=== PATIENT | female | born 1955 | race Caucasian/White ===

== ENCOUNTER 2017-05-31 10:30 | Outpatient (RCR) | payer SELFPAY ==
[2017-05-24 12:48] VITALS: BP 135/82; PULSE 124; RESP 18; TEMP 37.1; BMI 22.6
--- NOTE | 2017-05-24 14:19 | HP.PCM_ITS ---
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 Status: Acute Current Visit: Yes Code(s): C67.9 - Malignant neoplasm of bladder, unspecified; C77.5 - Secondary and unspecified malignant neoplasm of intrapelvic lymph nodes (2) History of total cystectomy Status: Acute Current Visit: Yes Code(s): Z98.890 - Other specified postprocedural states (3) Heart murmur Status: Chronic Current Visit: No Code(s): R01.1 - Cardiac murmur, unspecified (4) Renal insufficiency Status: Chronic Current Visit: No Code(s): N28.9 - Disorder of kidney and ureter, unspecified (5) Hypertension Status: Chronic Current Visit: No Qualifiers: Hypertension type: essential hypertension Qualified Code(s): I10 - Essential (primary) hypertension Code(s): I10 - Essential (primary) hypertension (6) Anemia Status: Chronic Current Visit: No Code(s): D64.9 - Anemia, unspecified (7) Obesity Status: Chronic Current Visit: No Code(s): E66.9 - Obesity, unspecified (8) Wound infection after surgery Status: Chronic Current Visit: Yes Qualifiers: Encounter type: initial encounter Qualified Code(s): T81.4XXA - Infection following a procedure, initial encounter Code(s): T81.4XXA - Infection following a procedure, initial encounter (9) Surgical wound dehiscence Status: Acute Current Visit: Yes Qualifiers: Encounter type: initial encounter Qualified Code(s): T81.31XA - Disruption of external operation (surgical) wound, not elsewhere classified, initial encounter Code(s): T81.31XA - Disruption of external operation (surgical) wound, not elsewhere classified, initial encounter (10) S/P ileal conduit Status: Acute Current Visit: Yes Code(s): Z93.6 - Other artificial openings of urinary tract status History of Present Illness Date of Service: 05/24/17 Chief Complaint: Postoperative surgical wound infection and surgical wound dehiscence of the abdomen History of Wound: This is a 61-year-old female who was diagnosed with bladder cancer earlier this year. It is a clinical T2 N3 urolithelial [place] of the bladder. Between September and December 2016 patient underwent 6 cycles of neoadjuvant chemotherapy. On February 17, she underwent radical cystectomy with vaginal sparing, ileal conduit urinary diversion, bilateral extended pelvic lymph node resection, bilateral ureterolysis, and open liver biopsy. She suffered from a series of postoperative complications, which included postoperative ascites which was surgically drained on 2 occasions, once in February and once in April. Surgical wound infection and dehiscence occurred, and is currently under treatment by means of oral antibiotics, including Keflex and Levaquin. The patient presents at this time for evaluation and management regarding her surgical wound dehiscence. Management currently exists of packing of the open portion of the wound with Nu Gauze on a daily basis. The patient's surgeon at [facility] in [place], [place], was Dr. Sidney Gonzalez. The patient admits that her appetite recently has been only fair. Past Medical History Past Medical History: Chronic Problems Heart murmur (Chronic) Renal insufficiency (Chronic) Hypertension (Chronic) Anemia (Chronic) Obesity (Chronic) Wound infection after surgery (Chronic) Past Medical History: Patient has a history of hypertension, heart murmur, renal insufficiency, anemia, obesity, and diabetes mellitus. Her history is negative for myocardial infarction, congestive heart failure, cerebrovascular accident, pulmonary disease, and thyroid disease. Surgical History: - - Patient is undergone hysterectomy in 2004. Tonsillectomy and adenoidectomy were performed in childhood. Patient has recently undergone the procedures previously outlined. She is a Ab0. Allergies/Adverse Reactions: Allergies quetiapine Adverse Reaction (Verified 05/24/17 13:15) Other Home Medications: Ambulatory Orders Medication Instructions Recorded Amlodipine [Norvasc] 5 mg PO DAILY 05/24/17 Cephalexin [Keflex] 500 mg PO TID 05/24/17 Ferrous Sulfate [Iron] 325 mg PO TID 05/24/17 Insulin Aspart [Novolog Flexpen See Protocol SC TIDCM 05/24/17 ([facility])] Insulin Glargine,Hum.rec.anlog 25 unit SQ QHS 05/24/17 [Basaglar Kwikpen U-100] Insulin Glargine,Hum.rec.anlog 15 unit SQ QHS 05/24/17 [Lantus] Levofloxacin [Levaquin] 750 mg PO 05/24/17 Magnesium Oxide [Mag-Ox 400] 400 mg PO BID 05/24/17 Metoprolol Succinate 50 mg PO DAILY 05/24/17 Omeprazole 40 mg PO DAILY 05/24/17 Prochlorperazine Maleate 10 mg PO 05/24/17 Sodium Bicarbonate 650 mg PO BID 05/24/17 Venlafaxine HCl [Effexor] 37.5 mg PO 05/24/17 - Family History Maternal - - Patient's father is . He at the age of 68 with a history of myocardial infarction and asbestosis. Patient's mother is 85 years of age and generally healthy. Social History: Patient is retired from [employer]. She denies use of alcohol tobacco products. She is . Lives: Alone Smoking Status: Never smoker Tobacco Use: Non-smoker Alcohol: None Drugs: None Review of Systems Constitutional: Denies: Chills, Fever, Weight Change Eyes: Denies: Pain, Vision Change HEENT: Denies: Difficulty Hearing, Difficulty Swallowing, Sinus Congestion Cardiovascular: Denies: Chest Pain, Palpitations Respiratory: Denies: Cough, Shortness of Breath Gastrointestinal: Denies: Diarrhea, Nausea, Vomiting Genitourinary: Denies: Dysuria, Hematuria Endocrine: Denies: Heat/ Cold Intolerance, Polydipsia, Polyuria Hematologic/ Lymphatic: Denies: Easy Bruising, Easy Bleeding - Physical Exam Vital Signs Temp Pulse Resp BP 98.7 F 124 H 18 135/82 H 05/24/17 12:48 05/24/17 12:48 05/24/17 12:48 05/24/17 12:48 General: Alert, Oriented x3, Cooperative, No apparent distress, Well developed, Well nourished, - - The patient is chronically ill in appearance. HEENT: Atraumatic, PERRLA, EOMI, Normocephalic Oral: Moist Mucosa, No Gingival or Mucosal Lesions/ Ulcerations Neck: Supple, No JVD, Negative Carotid Bruits, Negative Hepatojugular Reflux, No Nodes, No Nuchal Rigidity, Trachea Midline Lungs: Clear to auscultation, Normal air movement, No rhonchi, No wheeze, No rales Cardiovascular: Regular rate, Regular Rhythm, Normal S1, Normal S2, No Ectopic Activity Abdomen: Soft, Non Tender, Non-Distended, - - The stoma of the patient's ileal conduit is noted to the right of the midline. It is pink and healthy in appearance, appearing to be well vascularized. A surgical midline incision is noted, which appears to be well approximated throughout most of its course. There is an open wound with nonviable and necrotic tissue, located at the navel. There is undermining both superiorly and inferiorly of the distance of approximately 5 cm. Inferior to this dehiscent wound is a large area of frankly dry necrotic tissue, the dimensions of which are documented elsewhere. Extremities: No clubbing, No cyanosis, No edema, No Calf Tenderness Skin: No rashes Wound Measurements and Assessment - Nurse 1 - General Ulcer Measurement Start: 05/24/17 12:42 Freq: Status: Active Protocol: Activity Type Activity Date Activity User E-Sign Co-Sign Detail Recorded Client Recorded Date Recorded By Document 05/24/17 12:48 [facility] [id number] 05/24/17 12:55 [facility] 05/24/17 12:48 Wound Center Nurse 1 [Ulcer Assessment Protocol: .WD.LOC] #2- INFERIOR ABD WOUND (SURGICAL INCISION DEHISCENCE) -Combined with other wound No -Current Size (cm) - Length 1.9 -Current Size (cm) - Width 3.7 -Current Size (cm) - Depth 0.1 -Total Square Cm 7.03 -Date of Last Picture (Recall this 05/24/17 field) -Photo Taken Yes -Epithelialization None Present -Tunneling No -Undermining/Tunneling No -Exudate Amt Medium (34-66%) -Exudate Type Serosanguineous -Wound Margin Distinct, Outline Attached -Granulation Amt None Present (0 %) -Slough/Fibrin Yes -Necrosis Amt Large (67-100%) -Necrotic Tissue Type Eschar -Texture (Mayte-wound Skin Appearance) Scarring -Color (Mayte-wound Skin Appearance) Erythema -Temperature (Mayte-wound Skin No Abnormality Appearance) (Pt Warm) -Tenderness on Palpation (Mayte-wound No Skin Appearance) -Ulcer Cleansing Rinsed/ Irrigated with Saline -Foul Odor after Cleansing No -Anesthetic Used 4% Lidocaine Solution #1- SUPERIOR ABD WOUND (SURGICAL INCISION DEHISCENCE) -Combined with other wound No -Current Size (cm) - Length 1 -Current Size (cm) - Width 1.2 -Current Size (cm) - Depth 2 -Total Square Cm 1.2 -Date of Last Picture (Recall this 05/24/17 field) -Photo Taken Yes -Epithelialization None Present -Tunneling No -Undermining/Tunneling Yes -Undermining/Tunneling Starts (O' 12 clock) -Undermining/Tunneling Ends (O'clock) 3 -Maximum Distance (cm) 3.3 -Circular Undermining No -Exudate Amt Medium (34-66%) -Exudate Type Serosanguineous -Wound Margin Distinct, Outline Attached -Granulation Amt Medium (34-66%) -Granulation Quality Red -Slough/Fibrin Yes -Necrosis Amt Medium (34-66%) -Necrotic Tissue Type Adherent Slough -Texture (Mayte-wound Skin Appearance) Scarring -Moisture (Mayte-wound Skin Appearance Dry/Scaly ) -Color (Mayte-wound Skin Appearance) Erythema -Temperature (Mayte-wound Skin No Abnormality Appearance) (Pt Warm) -Tenderness on Palpation (Mayte-wound No Skin Appearance) -Ulcer Cleansing Rinsed/ Irrigated with Saline -Foul Odor after Cleansing No -Anesthetic Used 4% Lidocaine Solution Neurological: Cranial nerves II-XII grossly intact, Neuro grossly intact Psych/Mental Status: Normal Affect, Appropriate, Alert and oriented to time, place, person, mood and affect Debridement Note Laterality: Not Applicable Type of Debridement: Excisional debridement Anesthesia Used: 4% Lidocaine Solution Depth: Down to and including healthy tissue, in the subcutaneous layer Percentage of wound debrided: 100 Instrument Used: #15 blade, Forceps Severity: Fat Layer Exposed Amount of bleeding with debridement: Mild Bleeding Controlled with: Compression and gauze Patient tolerated procedure well The wound of depth near the navel was debrided using a sterile forceps and scalpel. The necrotic margins of the wound were excised. The inferior wound, which is more superficial, consisted of a very thick, dry eschar. After applying topical lidocaine anesthetic, on several occasions, sharp scalpel dissection was used to excise the overlying dry necrotic eschar. Patient tolerated the procedure well. The debridement was carried down into the subcutaneous tissues. Minimal bleeding was encountered. Assessment/Plan Active Problems Bladder cancer metastasized to intrapelvic lymph nodes (Acute) History of total cystectomy (Acute) Wound infection after surgery (Chronic) Surgical wound dehiscence (Acute) S/P ileal conduit (Acute) Assessment: This is a 61-year-old female with a recent diagnosis of carcinoma of the bladder. She is several months postoperative, and now has significant dehiscence of the inferior portion of her wound, associated with infection. Plan: We are to obtain routine laboratory studies, including a CBC, comprehensive metabolic profile, serum prealbumin, hemoglobin A1c, etc. Patient has been advised to take a well balanced and nutritious diet. Optimization of her diabetes has been recommended. Packing of the large open wound is to be performed using sterile Nu Gauze, which the patient's family has already been implementing. We will initiate the use of collagenase Santyl topically on the inferior wound, from which the large dry necrotic eschar has been excised today. Patient will return in 1 week for reassessment. Ultimately , radiographic imaging may be helpful in determining the underlying anatomy of the patient's wounds. She is scheduled to undergo a CT scan of the abdomen at [facility] on June 10, 2017. We have asked that the report and a disc with images be forwarded back to us so that we can review the patient's wound. At this juncture, her multidisciplinary team of physicians at [facility] in [place] anticipates the mentation of immunotherapy in the near future. The patient is not a smoker. Influenza vaccine was not administered today. Patient stands 5 feet 9 inches tall. She weighs 153 pounds. Her BMI is 22.6, which is normal.
--- NOTE | 2017-05-24 14:33 | HP.PCM_ITS ---
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 Status: Acute Current Visit: Yes Code(s): C67.9 - Malignant neoplasm of bladder, unspecified; C77.5 - Secondary and unspecified malignant neoplasm of intrapelvic lymph nodes (2) History of total cystectomy Status: Acute Current Visit: Yes Code(s): Z98.890 - Other specified postprocedural states (3) Heart murmur Status: Chronic Current Visit: No Code(s): R01.1 - Cardiac murmur, unspecified (4) Renal insufficiency Status: Chronic Current Visit: No Code(s): N28.9 - Disorder of kidney and ureter, unspecified (5) Hypertension Status: Chronic Current Visit: No Qualifiers: Hypertension type: essential hypertension Qualified Code(s): I10 - Essential (primary) hypertension Code(s): I10 - Essential (primary) hypertension (6) Anemia Status: Chronic Current Visit: No Code(s): D64.9 - Anemia, unspecified (7) Obesity Status: Chronic Current Visit: No Code(s): E66.9 - Obesity, unspecified (8) Wound infection after surgery Status: Chronic Current Visit: Yes Qualifiers: Encounter type: initial encounter Qualified Code(s): T81.4XXA - Infection following a procedure, initial encounter Code(s): T81.4XXA - Infection following a procedure, initial encounter (9) Surgical wound dehiscence Status: Acute Current Visit: Yes Qualifiers: Encounter type: initial encounter Qualified Code(s): T81.31XA - Disruption of external operation (surgical) wound, not elsewhere classified, initial encounter Code(s): T81.31XA - Disruption of external operation (surgical) wound, not elsewhere classified, initial encounter (10) S/P ileal conduit Status: Acute Current Visit: Yes Code(s): Z93.6 - Other artificial openings of urinary tract status History of Present Illness Date of Service: 05/24/17 Chief Complaint: Postoperative surgical wound infection and surgical wound dehiscence of the abdomen History of Wound: This is a 61-year-old female who was diagnosed with bladder cancer earlier this year. It is a clinical T2 N3 urolithelial [place] of the bladder. Between September and December 2016 patient underwent 6 cycles of neoadjuvant chemotherapy. On February 17, she underwent radical cystectomy with vaginal sparing, ileal conduit urinary diversion, bilateral extended pelvic lymph node resection, bilateral ureterolysis, and open liver biopsy. She suffered from a series of postoperative complications, which included postoperative ascites which was surgically drained on 2 occasions, once in February and once in April. Surgical wound infection and dehiscence occurred, and is currently under treatment by means of oral antibiotics, including Keflex and Levaquin. The patient presents at this time for evaluation and management regarding her surgical wound dehiscence. Management currently exists of packing of the open portion of the wound with Nu Gauze on a daily basis. The patient's surgeon at [facility] in [place], [place], was Dr. Sidney Gonzalez. The patient admits that her appetite recently has been only fair. Past Medical History Past Medical History: Chronic Problems Heart murmur (Chronic) Renal insufficiency (Chronic) Hypertension (Chronic) Anemia (Chronic) Obesity (Chronic) Wound infection after surgery (Chronic) Surgical History: - - Patient is undergone hysterectomy in 2004. Tonsillectomy and adenoidectomy were performed in childhood. Patient has recently undergone the procedures previously outlined. She is a Ab0. Allergies/Adverse Reactions: Allergies quetiapine Adverse Reaction (Verified 05/24/17 13:15) Other Home Medications: Ambulatory Orders Medication Instructions Recorded Amlodipine [Norvasc] 5 mg PO DAILY 05/24/17 Cephalexin [Keflex] 500 mg PO TID 05/24/17 Ferrous Sulfate [Iron] 325 mg PO TID 05/24/17 Insulin Aspart [Novolog Flexpen See Protocol SC TIDCM 05/24/17 ([facility])] Insulin Glargine,Hum.rec.anlog 25 unit SQ QHS 05/24/17 [Basaglar Kwikpen U-100] Insulin Glargine,Hum.rec.anlog 15 unit SQ QHS 05/24/17 [Lantus] Levofloxacin [Levaquin] 750 mg PO 05/24/17 Magnesium Oxide [Mag-Ox 400] 400 mg PO BID 05/24/17 Metoprolol Succinate 50 mg PO DAILY 05/24/17 Omeprazole 40 mg PO DAILY 05/24/17 Prochlorperazine Maleate 10 mg PO 05/24/17 Sodium Bicarbonate 650 mg PO BID 05/24/17 Venlafaxine HCl [Effexor] 37.5 mg PO 05/24/17 - Family History Maternal - - Patient's father is . He at the age of 68 with a history of myocardial infarction and asbestosis. Patient's mother is 85 years of age and generally healthy. Lives: Alone Smoking Status: Never smoker Tobacco Use: Non-smoker Alcohol: None Drugs: None - Physical Exam Vital Signs Temp Pulse Resp BP 98.7 F 124 H 18 135/82 H 05/24/17 12:48 05/24/17 12:48 05/24/17 12:48 05/24/17 12:48 Wound Measurements and Assessment - Nurse 1 - General Ulcer Measurement Start: 05/24/17 12:42 Freq: Status: Active Protocol: Activity Type Activity Date Activity User E-Sign Co-Sign Detail Recorded Client Recorded Date Recorded By Document 05/24/17 12:48 [facility] [id number] 05/24/17 12:55 [facility] 05/24/17 12:48 Wound Center Nurse 1 [Ulcer Assessment Protocol: ESPERANZA.WD.LOC] #2- INFERIOR ABD WOUND (SURGICAL INCISION DEHISCENCE) -Combined with other wound No -Current Size (cm) - Length 1.9 -Current Size (cm) - Width 3.7 -Current Size (cm) - Depth 1.6 -Total Square Cm 7.03 -Date of Last Picture (Recall this 05/24/17 field) -Photo Taken Yes -Epithelialization None Present -Tunneling No -Undermining/Tunneling No -Circular Undermining Yes -Classification - Thickness Full Thickness with Exposed Support Structure -Exudate Amt Medium (34-66%) -Exudate Type Serosanguineous -Wound Margin Distinct, Outline Attached -Granulation Amt None Present (0 %) -Slough/Fibrin Yes -Necrosis Amt Large (67-100%) -Necrotic Tissue Type Eschar -Texture (Mayte-wound Skin Appearance) Scarring -Color (Mayte-wound Skin Appearance) Erythema -Temperature (Mayte-wound Skin No Abnormality Appearance) (Pt Warm) -Tenderness on Palpation (Mayte-wound No Skin Appearance) -Ulcer Cleansing Rinsed/ Irrigated with Saline -Foul Odor after Cleansing No -Anesthetic Used 4% Lidocaine Solution #1- SUPERIOR ABD WOUND (SURGICAL INCISION DEHISCENCE) -Combined with other wound No -Current Size (cm) - Length 1 -Current Size (cm) - Width 1.2 -Current Size (cm) - Depth 3.0 -Total Square Cm 1.2 -Date of Last Picture (Recall this 05/24/17 field) -Photo Taken Yes -Epithelialization None Present -Tunneling Yes -Tunneling Position (O'clock) 12 -Tunneling Distance (cm) 6.8 -Tunneling Position #2 (O'clock) 6 -Tunneling Distance #2 (cm) 3.5 -Undermining/Tunneling Yes -Undermining/Tunneling Starts (O' 5 clock) -Undermining/Tunneling Ends (O'clock) 7 -Maximum Distance (cm) 3.5 -Undermining/Tunneling Starts #2 (O' 12 clock) -Undermining/Tunneling Ends #2 (O' 12 clock) -Maximum Distance #2 (cm) 3.3 -Circular Undermining Yes -Classification - Thickness Full Thickness with Exposed Support Structure -Exudate Amt Medium (34-66%) -Exudate Type Serosanguineous -Wound Margin Distinct, Outline Attached -Granulation Amt Medium (34-66%) -Granulation Quality Red -Slough/Fibrin Yes -Necrosis Amt Medium (34-66%) -Necrotic Tissue Type Adherent Slough -Texture (Mayte-wound Skin Appearance) Scarring -Moisture (Mayte-wound Skin Appearance Dry/Scaly ) -Color (Mayte-wound Skin Appearance) Erythema -Temperature (Mayte-wound Skin No Abnormality Appearance) (Pt Warm) -Tenderness on Palpation (Mayte-wound No Skin Appearance) -Ulcer Cleansing Rinsed/ Irrigated with Saline -Foul Odor after Cleansing No -Anesthetic Used 4% Lidocaine Solution Assessment/Plan Active Problems Bladder cancer metastasized to intrapelvic lymph nodes (Acute) History of total cystectomy (Acute) Wound infection after surgery (Chronic) Surgical wound dehiscence (Acute) S/P ileal conduit (Acute) Assessment: This is a 61-year-old female with a recent diagnosis of carcinoma of the bladder. She is several months postoperative, and now has significant dehiscence of the inferior portion of her wound, associated with infection. Plan: We are to obtain routine laboratory studies, including a CBC, comprehensive metabolic profile, serum prealbumin, hemoglobin A1c, etc. Patient has been advised to take a well balanced and nutritious diet. Optimization of her diabetes has been recommended. Packing of the large open wound is to be performed using sterile Nu Gauze, which the patient's family has already been implementing. We will initiate the use of collagenase Santyl topically on the inferior wound, from which the large dry necrotic eschar has been excised today. Patient will return in 1 week for reassessment. Ultimately , radiographic imaging may be helpful in determining the underlying anatomy of the patient's wounds. She is scheduled to undergo a CT scan of the abdomen at [facility] on June 10, 2017. We have asked that the report and a disc with images be forwarded back to us so that we can review the patient's wound. At this juncture, her multidisciplinary team of physicians at [facility] anticipates the mentation of immunotherapy in the near future. Patient is to remain on her current oral antibiotics, Keflex and Levaquin, until completion. We have obtained swab cultures of the patient' s wound today, and will await results. The patient is not a smoker. Influenza vaccine was not administered today. Patient stands 5 feet 9 inches tall. She weighs 153 pounds. Her BMI is 22.6, which is normal.
[2017-05-31 10:47] VITALS: BP 133/79; PULSE 124; RESP 16; TEMP 36.4; BMI 22.6
--- NOTE | 2017-05-31 11:15 | PCM.WC.HP ---
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 Status: Acute Current Visit: Yes Code(s): C67.9 - Malignant neoplasm of bladder, unspecified; C77.5 - Secondary and unspecified malignant neoplasm of intrapelvic lymph nodes (2) History of total cystectomy Status: Acute Current Visit: Yes Code(s): Z98.890 - Other specified postprocedural states (3) Heart murmur Status: Chronic Current Visit: No Code(s): R01.1 - Cardiac murmur, unspecified (4) Renal insufficiency Status: Chronic Current Visit: No Code(s): N28.9 - Disorder of kidney and ureter, unspecified (5) Hypertension Status: Chronic Current Visit: No Qualifiers: Hypertension type: essential hypertension Qualified Code(s): I10 - Essential (primary) hypertension Code(s): I10 - Essential (primary) hypertension (6) Anemia Status: Chronic Current Visit: No Code(s): D64.9 - Anemia, unspecified (7) Obesity Status: Chronic Current Visit: No Code(s): E66.9 - Obesity, unspecified (8) Wound infection after surgery Status: Chronic Current Visit: Yes Qualifiers: Encounter type: subsequent encounter Qualified Code(s): T81.4XXD - Infection following a procedure, subsequent encounter Code(s): T81.4XXA - Infection following a procedure, initial encounter (9) Surgical wound dehiscence Status: Acute Current Visit: Yes Qualifiers: Encounter type: subsequent encounter Qualified Code(s): T81.31XD - Disruption of external operation (surgical) wound, not elsewhere classified, subsequent encounter Code(s): T81.31XA - Disruption of external operation (surgical) wound, not elsewhere classified, initial encounter (10) S/P ileal conduit Status: Acute Current Visit: Yes Code(s): Z93.6 - Other artificial openings of urinary tract status History of Present Illness Date of Service: 05/31/17 Chief Complaint: Postoperative surgical wound infection and surgical wound dehiscence of the abdomen History of Wound: This is a 61-year-old female who was diagnosed with bladder cancer earlier this year. It is a clinical T2 N3 urolithelial [place] of the bladder. Between September and December 2016 patient underwent 6 cycles of neoadjuvant chemotherapy. On Seda 14, she underwent radical cystectomy with vaginal sparing, ileal conduit urinary diversion, bilateral extended pelvic lymph node resection, bilateral ureterolysis, and open liver biopsy. She suffered from a series of postoperative complications, which included postoperative ascites which was surgically drained on 2 occasions, once in February and once in April. Surgical wound infection and dehiscence occurred, and is currently under treatment by means of oral antibiotics, including Keflex and Levaquin. The patient presented here for evaluation and management regarding her surgical wound dehiscence. Management currently consists of packing of the open portion of the wound with Nu Gauze on a daily basis with respect to the upper wound, which demonstrates significant undermining. The larger of the 2 wounds, that inferiorly, contains a large amount of frankly necrotic and nonviable tissue. The patient's surgeon at [facility] in [place], [place], was Dr. Sidney Gonzalez. The patient admits that her appetite recently has been only fair. Past Medical History Past Medical History: Chronic Problems Heart murmur (Chronic) Renal insufficiency (Chronic) Hypertension (Chronic) Anemia (Chronic) Obesity (Chronic) Wound infection after surgery (Chronic) Surgical History: - - Patient is undergone hysterectomy in 2004. Tonsillectomy and adenoidectomy were performed in childhood. Patient has recently undergone the procedures previously outlined. She is a Ab0. Allergies/Adverse Reactions: Allergies quetiapine Adverse Reaction (Verified 05/24/17 13:15) Other Home Medications: Ambulatory Orders Medication Instructions Recorded Amlodipine [Norvasc] 5 mg PO DAILY 05/24/17 Cephalexin [Keflex] 500 mg PO TID 05/24/17 Ferrous Sulfate [Iron] 325 mg PO TID 05/24/17 Insulin Aspart [Novolog Flexpen See Protocol SC TIDCM 05/24/17 ([facility])] Insulin Glargine,Hum.rec.anlog 25 unit SQ QHS 05/24/17 [Basaglar Kwikpen U-100] Insulin Glargine,Hum.rec.anlog 15 unit SQ QHS 05/24/17 [Lantus] Levofloxacin [Levaquin] 750 mg PO 05/24/17 Magnesium Oxide [Mag-Ox 400] 400 mg PO BID 05/24/17 Metoprolol Succinate 50 mg PO DAILY 05/24/17 Omeprazole 40 mg PO DAILY 05/24/17 Prochlorperazine Maleate 10 mg PO 05/24/17 Sodium Bicarbonate 650 mg PO BID 05/24/17 Venlafaxine HCl [Effexor] 37.5 mg PO 05/24/17 - Family History Maternal - - Patient's father is . He at the age of 68 with a history of myocardial infarction and asbestosis. Patient's mother is 85 years of age and generally healthy. Lives: Alone Smoking Status: Never smoker Tobacco Use: Non-smoker Alcohol: None Drugs: None Review of Systems Constitutional: Denies: Chills, Fever, Weight Change Eyes: Denies: Pain, Vision Change HEENT: Denies: Difficulty Hearing, Difficulty Swallowing, Sinus Congestion Cardiovascular: Denies: Chest Pain, Palpitations Respiratory: Denies: Cough, Shortness of Breath Gastrointestinal: Denies: Diarrhea, Nausea, Vomiting Genitourinary: Denies: Dysuria, Hematuria Endocrine: Denies: Heat/ Cold Intolerance, Polydipsia, Polyuria Hematologic/ Lymphatic: Denies: Easy Bruising, Easy Bleeding - Physical Exam Vital Signs Temp Pulse Resp BP 97.5 F L 124 H 16 133/79 H 05/31/17 10:47 05/31/17 10:47 05/31/17 10:47 05/31/17 10:47 General: Alert, Oriented x3, Cooperative, No apparent distress, Well developed, - - Patient appears chronically ill HEENT: Atraumatic, PERRLA, EOMI, Normocephalic Oral: Moist Mucosa Neck: No JVD Lungs: Normal air movement Abdomen: Soft, Non-Distended, - - The vertical midline incision is dehiscent. There are 2 open wounds within the incisional site. The superior wound is smaller in size, but with significant undermining in both the superior and inferior directions. The more inferior wound, the larger of the 2, contains a rather large amount of frankly necrotic and nonviable tissue. Dimensions are documented elsewhere. There is a moderate amount of undermining associated with the inferior wound. Surrounding skin is devoid of erythema or evidence of significant cellulitis. An ostomy bag is noted in place to the right of the patient's dehiscent surgical wound. Extremities: No clubbing, No cyanosis, No edema, No Calf Tenderness Skin: No rashes Wound Measurements and Assessment WC - Nurse 1 - General Ulcer Measurement Start: 05/24/17 12:42 Freq: Status: Active Protocol: Activity Type Activity Date Activity User E-Sign Co-Sign Detail Recorded Client Recorded Date Recorded By Document 05/31/17 10:47 [facility] [id number] 05/31/17 10:53 [facility] 05/31/17 10:47 Wound Center Nurse 1 [Ulcer Assessment Protocol: WC.WD.LOC] #2- INFERIOR ABD WOUND (SURGICAL INCISION DEHISCENCE) -Combined with other wound No -Current Size (cm) - Length 2.0 -Current Size (cm) - Width 4.4 -Current Size (cm) - Depth 0.2 -Total Square Cm 8.80 -Photo Taken No -Epithelialization None Present -Undermining/Tunneling No -Exudate Amt Medium (34-66%) -Exudate Type Serosanguineous -Wound Margin Distinct, Outline Attached -Granulation Amt None Present (0 %) -Slough/Fibrin Yes -Necrosis Amt Large (67-100%) -Necrotic Tissue Type Adherent Slough -Texture (Mayte-wound Skin Appearance) Scarring -Color (Mayte-wound Skin Appearance) Erythema -Temperature (Mayte-wound Skin No Abnormality Appearance) (Pt Warm) -Tenderness on Palpation (Mayte-wound No Skin Appearance) -Ulcer Cleansing Rinsed/ Irrigated with Saline -Foul Odor after Cleansing No -Anesthetic Used 4% Lidocaine Solution #1- SUPERIOR ABD WOUND (SURGICAL INCISION DEHISCENCE) -Combined with other wound No -Current Size (cm) - Length 0.6 -Current Size (cm) - Width 1.0 -Current Size (cm) - Depth 1.5 -Total Square Cm 0.60 -Photo Taken No -Tunneling Yes -Tunneling Position (O'clock) 12 -Tunneling Distance (cm) 3.3 -Tunneling Position #2 (O'clock) 6 -Tunneling Distance #2 (cm) 2.6 -Undermining/Tunneling No -Exudate Amt Medium (34-66%) -Exudate Type Serosanguineous -Wound Margin Distinct, Outline Attached -Granulation Amt None Present (0 %) -Slough/Fibrin Yes -Necrosis Amt Large (67-100%) -Necrotic Tissue Type Adherent Slough -Texture (Mayte-wound Skin Appearance) Scarring -Moisture (Mayte-wound Skin Appearance Maceration ) -Color (Mayte-wound Skin Appearance) Erythema -Temperature (Mayte-wound Skin No Abnormality Appearance) (Pt Warm) -Tenderness on Palpation (Mayte-wound No Skin Appearance) -Ulcer Cleansing Rinsed/ Irrigated with Saline -Foul Odor after Cleansing No -Anesthetic Used 4% Lidocaine Solution Neurological: Cranial nerves II-XII grossly intact, Neuro grossly intact Psych/Mental Status: Normal Affect, Appropriate, Alert and oriented to time, place, person, mood and affect Debridement Note Post-Debridement Measurements/Treatment WC - Nurse 2 - General Ulcer CM Notes Start: 05/24/17 12:42 Freq: Status: Active Protocol: Activity Type Activity Date Activity User E-Sign Co-Sign Detail Recorded Client Recorded Date Recorded By Document 05/24/17 14:27 KAVYA [id number] 05/24/17 14:35 KAVYA 05/24/17 14:27 Wound Center Nurse 2 #2- INFERIOR ABD WOUND (SURGICAL INCISION DEHISCENCE) -Time 14:27 -Correct Patient Yes -Correct Side, Site, Position Yes -Correct Procedure Yes -Procedure Performed Yes -Type of Procedure Debridement -Clinical Debridement Subcutaneous -Post Debridement Size (cm) - Length 4.2 -Post Debridement Size (cm) - Width 2.0 -Post Debridement Size (cm) - Depth 1.6 -Total Square Cm 8.40 -Wound/Ulcer Outcome Not Healed -Ulcer Cleansing Rinsed/ Irrigated with Saline -Foul Odor after Cleansing No -Bioengineered Tissue No -Type of bioengineered Tissue EPIFIX -Cetacaine Winston No -Topical Lidocaine (%) 4 -Lidocaine (ml) 10 -Bleeding Controlled with NA Pressure -Treatment Response Procedure Tolerated Well #1- SUPERIOR ABD WOUND (SURGICAL INCISION DEHISCENCE) -Time 14:27 -Correct Patient Yes -Correct Side, Site, Position Yes -Correct Procedure Yes -Procedure Performed Yes -Type of Procedure Debridement -Clinical Debridement Subcutaneous -Post Debridement Size (cm) - Length 2.1 -Post Debridement Size (cm) - Width 2.7 -Post Debridement Size (cm) - Depth 3.0 -Total Square Cm 5.67 -Wound/Ulcer Outcome Not Healed -Ulcer Cleansing Rinsed/ Irrigated with Saline -Foul Odor after Cleansing No -Bioengineered Tissue No -Cetacaine Winston No -Topical Lidocaine (%) 4 -Lidocaine (ml) 15 -Bleeding Controlled with NA -Treatment Response Procedure Tolerated Well Laterality: Not Applicable - Midline surgical wound dehiscence Type of Debridement: Excisional debridement Anesthesia Used: 4% Lidocaine Solution Depth: Down to and including healthy tissue, in the subcutaneous layer Percentage of wound debrided: 100 Instrument Used: 5mm curette, Forceps, - - Sterile scissors Severity: Fat Layer Exposed Amount of bleeding with debridement: Mild Bleeding Controlled with: Compression and gauze Patient tolerated procedure well Assessment/Plan Active Problems Bladder cancer metastasized to intrapelvic lymph nodes (Acute) History of total cystectomy (Acute) Wound infection after surgery (Chronic) Surgical wound dehiscence (Acute) S/P ileal conduit (Acute) Assessment: This is a 61-year-old female with a recent diagnosis of carcinoma of the bladder. She is several months postoperative, and now has significant dehiscence of the inferior portion of her wound, associated with infection. There is a significant amount of undermining, and sher[place] necrotic, nonviable tissue within the 2 adjacent wounds. While not yet demonstrated, there is suspicion that the 2 wounds communicate in the subcutaneous planes. Patient's recent cultures have been reviewed, and are positive for Acinetobacter baumannii coag negative staph. Review of the sensitivities reveals rather global resistance to many available antibiotics. Therefore, we are to request a consultation with the infectious disease service. Laboratory studies have been obtained as well, with results as follows, serum prealbumin 13.0, sodium 137, potassium 4.3, chloride 108, BUN 39, creatinine 1.7, calcium 8.4, glucose 138, SGOT 20, SGPT 8, alkaline phosphatase 81, total protein 7.4, serum albumin 2.7, white blood count 5.2, hemoglobin 10.7, hematocrit 31.4, platelets 256,000. These findings do suggest a mild anemia, and mild nutritional depletion. The patient's hemoglobin A1c was 5.4. Plan: Patient has been advised to take a well balanced and nutritious diet. She is currently supplementing with a nutritional supplement. Her hemoglobin A1c would suggest relatively good control of the patient's diabetes mellitus. Optimization of her diabetes has been recommended. Packing of both open wounds using gauze. Wound packing with gauze will be performed once or twice daily. We will await recommendations from the infectious disease service. The patient is known to have an port in the right clavicular area, which may serve to administer intravenous antibiotic, if advised. Patient is scheduled to undergo a CT scan of the abdomen on June 10, 2017, at [facility]. These results will be awaited. We have requested both a copy of the transcribed report, as well as a disc containing images, which can then be reviewed with our local radiology staff. It is anticipated that the patient will require surgical unroofing and debridement of her extensive dehiscent wounds, and it will be necessary to determine whether the underlying fascial layers are intact. It is my intention to discuss matters with Dr. Gonzalez, to determine whether the surgical debridement might best be performed at his facility in [place], [place]. Patient will return in 1 week for reassessment. At this juncture, her multidisciplinary team of physicians at [facility] anticipates the initiation of immunotherapy in the near future. Patient is to remain on her current oral antibiotics, Keflex and Levaquin, until completion, until we receive recommendations from the ID sec reporting consultant. The patient is not a smoker. Influenza vaccine was not administered today. Patient stands 5 feet 9 inches tall. She weighs 153 pounds. Her BMI is 22.6, which is normal.
== END 2017-06-05 23:59 ==
LOC: WC 10:30
PROVIDERS: Visit Provider Surgery
DX: T81.4XXA Infection following a procedure, initial encounter (principal); R01.1 Cardiac murmur, unspecified; E11.22 Type 2 diabetes mellitus with diabetic chronic kidney disease; I12.9 Hypertensive chronic kidney disease with stage 1 through stage 4 chronic kidney disease, or unspecified chronic kidney disease; N18.9 Chronic kidney disease, unspecified; C67.9 Malignant neoplasm of bladder, unspecified; C77.5 Secondary and unspecified malignant neoplasm of intrapelvic lymph nodes; Z79.899 Other long term (current) drug therapy; Z79.4 Long term (current) use of insulin
CPT/HCPCS: 11042; 87070; 87075; 87077; 87186; 87205; 99213; G0463

== ENCOUNTER 2017-07-04 13:00 | Outpatient (RCR) | payer SELFPAY ==
[2017-06-06 01:43] VITALS: BP 133/79; PULSE 124; RESP 16; TEMP 36.4; BMI 22.6
[2017-06-07 10:42] VITALS: BP 132/70; PULSE 83; RESP 18; TEMP 36.6; BMI 22.6
--- NOTE | 2017-06-07 11:53 | PCM.WC.HP ---
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 Status: Acute Code(s): C67.9 - Malignant neoplasm of bladder, unspecified; C77.5 - Secondary and unspecified malignant neoplasm of intrapelvic lymph nodes (2) History of total cystectomy Status: Acute Code(s): Z98.890 - Other specified postprocedural states (3) Heart murmur Status: Chronic Code(s): R01.1 - Cardiac murmur, unspecified (4) Renal insufficiency Status: Chronic Code(s): N28.9 - Disorder of kidney and ureter, unspecified (5) Hypertension Status: Chronic Qualifiers: Code(s): I10 - Essential (primary) hypertension (6) Anemia Status: Chronic Code(s): D64.9 - Anemia, unspecified (7) Wound infection after surgery Status: Chronic Qualifiers: Encounter type: subsequent encounter Code(s): T81.4XXA - Infection following a procedure, initial encounter (8) Surgical wound dehiscence Status: Acute Qualifiers: Encounter type: subsequent encounter Code(s): T81.31XA - Disruption of external operation (surgical) wound, not elsewhere classified, initial encounter (9) S/P ileal conduit Status: Acute Code(s): Z93.6 - Other artificial openings of urinary tract status History of Present Illness Date of Service: 06/07/17 Chief Complaint: Postoperative surgical wound infection and surgical wound dehiscence of the abdomen History of Wound: This is a 61-year-old female who was diagnosed with bladder cancer earlier this year. 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 Between September and December 2016 patient underwent 6 cycles of neoadjuvant chemotherapy. On February 17, she underwent radical cystectomy with vaginal sparing, ileal conduit urinary diversion, bilateral extended pelvic lymph node resection, bilateral ureterolysis, and open liver biopsy. She suffered from a series of postoperative complications, which included postoperative ascites which was surgically drained on 2 occasions, once in February and once in April. Surgical wound infection and dehiscence occurred, and is currently under treatment by means of oral antibiotics, including Keflex and Levaquin. The patient presented here for evaluation and management regarding her surgical wound dehiscence. Management currently consists of packing of the open portion of the wound with Nu Gauze on a daily basis with respect to the upper wound, which demonstrates significant undermining. Two adjacent wounds contain a large amount of frankly necrotic and nonviable tissue. The patient's surgeon at [facility] in [place], [place], was Dr. Sidney Gonzalez. The patient admits that her appetite recently has been only fair. The amount of frankly necrotic tissue within the depths of the wounds has diminished in recent weeks with the implementation of serial debridements, gauze wound packings, etc. Past Medical History Past Medical History: Chronic Problems Heart murmur (Chronic) Renal insufficiency (Chronic) Hypertension (Chronic) Anemia (Chronic) Obesity (Chronic) Wound infection after surgery (Chronic) Surgical History: - - Patient is undergone hysterectomy in 2004. Tonsillectomy and adenoidectomy were performed in childhood. Patient has recently undergone the procedures previously outlined. She is a Ab0. Allergies/Adverse Reactions: Allergies quetiapine Adverse Reaction (Verified 05/24/17 13:15) Other Home Medications: Ambulatory Orders Medication Instructions Recorded Amlodipine [Norvasc] 5 mg PO DAILY 05/24/17 Cephalexin [Keflex] 500 mg PO TID 05/24/17 Ferrous Sulfate [Iron] 325 mg PO TID 05/24/17 Insulin Aspart [Novolog Flexpen See Protocol SC TIDCM 05/24/17 ([facility])] Insulin Glargine,Hum.rec.anlog 25 unit SQ QHS 05/24/17 [Basaglar Kwikpen U-100] Insulin Glargine,Hum.rec.anlog 15 unit SQ QHS 05/24/17 [Lantus] Levofloxacin [Levaquin] 750 mg PO 05/24/17 Magnesium Oxide [Mag-Ox 400] 400 mg PO BID 05/24/17 Metoprolol Succinate 50 mg PO DAILY 05/24/17 Omeprazole 40 mg PO DAILY 05/24/17 Prochlorperazine Maleate 10 mg PO 05/24/17 Sodium Bicarbonate 650 mg PO BID 05/24/17 Venlafaxine HCl [Effexor] 37.5 mg PO 05/24/17 - Family History Maternal - - Patient's father is . He at the age of 68 with a history of myocardial infarction and asbestosis. Patient's mother is 85 years of age and generally healthy. Smoking Status: Never smoker Tobacco Use: Non-smoker Review of Systems Constitutional: Denies: Chills, Fever, Weight Change Eyes: Denies: Pain, Vision Change HEENT: Denies: Difficulty Hearing, Difficulty Swallowing, Sinus Congestion Cardiovascular: Denies: Chest Pain, Palpitations Respiratory: Denies: Cough, Shortness of Breath Gastrointestinal: Denies: Diarrhea, Nausea, Vomiting Genitourinary: Denies: Dysuria, Hematuria Endocrine: Denies: Heat/ Cold Intolerance, Polydipsia, Polyuria Hematologic/ Lymphatic: Denies: Easy Bruising, Easy Bleeding - Physical Exam Vital Signs Temp Pulse Resp BP 97.8 F 83 18 132/70 H 06/07/17 10:42 06/07/17 10:42 06/07/17 10:42 06/07/17 10:42 General: Alert, Oriented x3, Cooperative, No apparent distress, Well developed, Well nourished, - - The patient appears chronically ill HEENT: Atraumatic, PERRLA, EOMI, Normocephalic Oral: Moist Mucosa Neck: No JVD Lungs: Normal air movement Abdomen: Soft, Non-Distended, - - A pink and healthy ileal conduit is noted to the right of the dehiscent surgical wound. Two open wounds are noted near the inferior portion of the patient's vertical abdominal incision. There is significant undermining. Though it cannot be ascertained, there is suspicion that they may communicate with one another. Wound dimensions are documented elsewhere. There is no sign of infection or cellulitis. However, there is significant amount of nonviable necrotic tissue remaining within the depths of each wound. Extremities: No clubbing, No cyanosis, No edema, No Calf Tenderness Wound Measurements and Assessment - Nurse 1 - General Ulcer Measurement Start: 06/07/17 10:42 Freq: Status: Active Protocol: Activity Type Activity Date Activity User E-Sign Co-Sign Detail Recorded Client Recorded Date Recorded By Document 06/07/17 10:42 DL [id number] 06/07/17 10:51 DL 06/07/17 10:42 Wound Center Nurse 1 [Ulcer Assessment Protocol: WC.WD.LOC] #2- INFERIOR ABD WOUND (SURGICAL INCISION DEHISCENCE) -Current Size (cm) - Length 2.3 -Current Size (cm) - Width 5 -Current Size (cm) - Depth 1.3 -Total Square Cm 11.5 -Photo Taken No -Exudate Amt Medium (34-66%) -Exudate Type Serosanguineous -Wound Margin Distinct, Outline Attached -Granulation Amt Small (1-33%) -Granulation Quality [place] -Necrosis Amt Large (67-100%) -Necrotic Tissue Type Adherent Slough -Structure Exposed N/A -Texture (Mayte-wound Skin Appearance) No Abnormality -Moisture (Mayte-wound Skin Appearance No Abnormality ) -Color (Mayte-wound Skin Appearance) No Abnormality -Temperature (Mayte-wound Skin No Abnormality Appearance) (Pt Warm) -Ulcer Cleansing Rinsed/ Irrigated with Saline -Foul Odor after Cleansing No -Anesthetic Used 4% Lidocaine Solution #1- SUPERIOR ABD WOUND (SURGICAL INCISION DEHISCENCE) -Current Size (cm) - Length 0.8 -Current Size (cm) - Width 1.2 -Current Size (cm) - Depth 2.2 -Total Square Cm 0.96 -Photo Taken No -Undermining/Tunneling Starts (O' 12 clock) -Undermining/Tunneling Ends (O'clock) 3 -Maximum Distance (cm) 2.8 -Exudate Amt Medium (34-66%) -Exudate Type Serosanguineous -Wound Margin Distinct, Outline Attached -Granulation Amt Small (1-33%) -Granulation Quality [place] -Necrosis Amt Large (67-100%) -Necrotic Tissue Type Adherent Slough -Structure Exposed N/A -Texture (Mayte-wound Skin Appearance) Scarring -Moisture (Mayte-wound Skin Appearance No Abnormality ) -Color (Mayte-wound Skin Appearance) No Abnormality -Temperature (Mayte-wound Skin No Abnormality Appearance) (Pt Warm) -Ulcer Cleansing Rinsed/ Irrigated with Saline -Foul Odor after Cleansing No -Anesthetic Used 4% Lidocaine Solution WC - Nurse 2 - General Ulcer CM Notes Start: 06/07/17 10:42 Freq: Status: Active Protocol: Activity Type Activity Date Activity User E-Sign Co-Sign Detail Recorded Client Recorded Date Recorded By Document 06/07/17 11:24 KAVYA [id number] 06/07/17 11:42 KAVYA 06/07/17 11:24 Wound Center Nurse 2 [Procedure/Treatment] #2- INFERIOR ABD WOUND (SURGICAL INCISION DEHISCENCE) -Time 11:24 -Correct Patient Yes -Correct Side, Site, Position Yes -Correct Procedure Yes -Procedure Performed Yes -Type of Procedure Debridement -Clinical Debridement Subcutaneous -Post Debridement Size (cm) - Length 2.4 -Post Debridement Size (cm) - Width 5.1 -Post Debridement Size (cm) - Depth 1.4 -Total Square Cm 12.24 -Wound/Ulcer Outcome Not Healed -Ulcer Cleansing Rinsed/ Irrigated with Saline -Foul Odor after Cleansing No -Bioengineered Tissue No -Cetacaine Delong No -Topical Lidocaine (%) 4 -Lidocaine (ml) 5 -Bleeding Controlled with NA -Treatment Response Procedure Tolerated Well #1- SUPERIOR ABD WOUND (SURGICAL INCISION DEHISCENCE) -Time 11:24 -Correct Patient Yes -Correct Side, Site, Position Yes -Correct Procedure Yes -Procedure Performed Yes -Type of Procedure Debridement -Clinical Debridement Subcutaneous -Post Debridement Size (cm) - Length 0.9 -Post Debridement Size (cm) - Width 1.3 -Post Debridement Size (cm) - Depth 2.3 -Total Square Cm 1.17 -Wound/Ulcer Outcome Not Healed -Ulcer Cleansing Rinsed/ Irrigated with Saline -Foul Odor after Cleansing No -Bioengineered Tissue No -Cetacaine Delong No -Topical Lidocaine (%) 4 -Lidocaine (ml) 5 -Bleeding Controlled with NA -Treatment Response Procedure Tolerated Well [See Physician Procedure note for Specifics] Pain Scale: 0-10 Numeric [Pain] -Is Patient Pain Free? Yes Neurological: Cranial nerves II-XII grossly intact, Neuro grossly intact Psych/Mental Status: Normal Affect, Appropriate, Alert and oriented to time, place, person, mood and affect Debridement Note Post-Debridement Measurements/Treatment WC - Nurse 2 - General Ulcer CM Notes Start: 06/07/17 10:42 Freq: Status: Active Protocol: Activity Type Activity Date Activity User E-Sign Co-Sign Detail Recorded Client Recorded Date Recorded By Document 06/07/17 11:24 KAVYA [id number] 06/07/17 11:42 KAVYA 06/07/17 11:24 Wound Center Nurse 2 #2- INFERIOR ABD WOUND (SURGICAL INCISION DEHISCENCE) -Time 11:24 -Correct Patient Yes -Correct Side, Site, Position Yes -Correct Procedure Yes -Procedure Performed Yes -Type of Procedure Debridement -Clinical Debridement Subcutaneous -Post Debridement Size (cm) - Length 2.4 -Post Debridement Size (cm) - Width 5.1 -Post Debridement Size (cm) - Depth 1.4 -Total Square Cm 12.24 -Wound/Ulcer Outcome Not Healed -Ulcer Cleansing Rinsed/ Irrigated with Saline -Foul Odor after Cleansing No -Bioengineered Tissue No -Cetacaine Delong No -Topical Lidocaine (%) 4 -Lidocaine (ml) 5 -Bleeding Controlled with NA -Treatment Response Procedure Tolerated Well #1- SUPERIOR ABD WOUND (SURGICAL INCISION DEHISCENCE) -Time 11:24 -Correct Patient Yes -Correct Side, Site, Position Yes -Correct Procedure Yes -Procedure Performed Yes -Type of Procedure Debridement -Clinical Debridement Subcutaneous -Post Debridement Size (cm) - Length 0.9 -Post Debridement Size (cm) - Width 1.3 -Post Debridement Size (cm) - Depth 2.3 -Total Square Cm 1.17 -Wound/Ulcer Outcome Not Healed -Ulcer Cleansing Rinsed/ Irrigated with Saline -Foul Odor after Cleansing No -Bioengineered Tissue No -Cetacaine Delong No -Topical Lidocaine (%) 4 -Lidocaine (ml) 5 -Bleeding Controlled with NA -Treatment Response Procedure Tolerated Well Pain Scale: 0-10 Numeric Is Patient Pain Free? Yes Laterality: Not Applicable - Dehiscent abdominal wound Type of Debridement: Excisional debridement Anesthesia Used: 4% Lidocaine Solution Depth: Down to and including healthy tissue, in the subcutaneous layer Percentage of wound debrided: 100 Instrument Used: 5mm curette, Forceps, - - Scissors Severity: Fat Layer Exposed Amount of bleeding with debridement: Mild Bleeding Controlled with: Compression and gauze Patient tolerated procedure well Assessment/Plan Assessment: This is a 61-year-old female with a recent diagnosis of carcinoma of the bladder. She is several months postoperative, and now has significant dehiscence of the inferior portion of her wound, associated with infection. There is a significant amount of undermining, and sheridan necrotic, nonviable tissue within the 2 adjacent wounds. While not yet demonstrated, there is suspicion that the 2 wounds communicate in the subcutaneous planes. Patient's recent cultures have been reviewed, and are positive for Acinetobacter baumannii coag negative staph. Review of the sensitivities reveals rather global resistance to many available antibiotics. Therefore, we are to request a consultation with the infectious disease service. Consultation will take place tomorrow. Laboratory studies have been obtained as well, with results as follows, serum prealbumin 13.0, sodium 137, potassium 4.3, chloride 108, BUN 39, creatinine 1.7, calcium 8.4, glucose 138, SGOT 20, SGPT 8, alkaline phosphatase 81, total protein 7.4, serum albumin 2.7, white blood count 5.2, hemoglobin 10.7, hematocrit 31.4, platelets 256,000. These findings do suggest a mild anemia, and mild nutritional depletion. The patient's hemoglobin A1c was 5.4. Plan: Patient has been advised to take a well balanced and nutritious diet. She is currently supplementing with a nutritional supplement. Her hemoglobin A1c would suggest relatively good control of the patient's diabetes mellitus. Optimization of her diabetes has been recommended. Packing of both open wounds using gauze. Wound packing with gauze will be performed once or twice daily. We will await recommendations from the infectious disease service. The patient is known to have a venous port in the right clavicular area, which may serve to administer intravenous antibiotic, if advised. Patient is scheduled to undergo a CT scan of the abdomen on June 10, 2017, at [facility]. These results will be awaited. We have requested both a copy of the transcribed report, as well as a disc containing images, which can then be reviewed with our local radiology staff. It is anticipated that the patient will require surgical unroofing and debridement of her extensive dehiscent wounds, and it will be necessary to determine whether the underlying fascial layers are intact. It is my intention to discuss matters with Dr. Gonzalez, to determine whether the surgical debridement might best be performed at his facility in [place], [place]. Patient will return in 1 week for reassessment. At this juncture, her multidisciplinary team of physicians at [facility] anticipates the initiation of immunotherapy in the near future. Patient is to remain on her current oral antibiotics, Keflex and Levaquin, until completion, until we receive recommendations from the ID erp consultant. The patient is not a smoker. Influenza vaccine was not administered today. Patient stands 5 feet 9 inches tall. She weighs 153 pounds. Her BMI is 22.6, which is normal.
--- NOTE | 2017-06-07 12:03 | HP.PCM_ITS ---
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 Status: Acute Code(s): C67.9 - Malignant neoplasm of bladder, unspecified; C77.5 - Secondary and unspecified malignant neoplasm of intrapelvic lymph nodes (2) History of total cystectomy Status: Acute Code(s): Z98.890 - Other specified postprocedural states (3) Heart murmur Status: Chronic Code(s): R01.1 - Cardiac murmur, unspecified (4) Renal insufficiency Status: Chronic Code(s): N28.9 - Disorder of kidney and ureter, unspecified (5) Hypertension Status: Chronic Qualifiers: Code(s): I10 - Essential (primary) hypertension (6) Anemia Status: Chronic Code(s): D64.9 - Anemia, unspecified (7) Wound infection after surgery Status: Chronic Qualifiers: Encounter type: subsequent encounter Code(s): T81.4XXA - Infection following a procedure, initial encounter (8) Surgical wound dehiscence Status: Acute Qualifiers: Encounter type: subsequent encounter Code(s): T81.31XA - Disruption of external operation (surgical) wound, not elsewhere classified, initial encounter (9) S/P ileal conduit Status: Acute Code(s): Z93.6 - Other artificial openings of urinary tract status History of Present Illness Date of Service: 06/07/17 Chief Complaint: Postoperative surgical wound infection and surgical wound dehiscence of the abdomen History of Wound: This is a 61-year-old female who was diagnosed with bladder cancer earlier this year. 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 Between September and December 2016 patient underwent 6 cycles of neoadjuvant chemotherapy. On February 17, she underwent radical cystectomy with vaginal sparing, ileal conduit urinary diversion, bilateral extended pelvic lymph node resection, bilateral ureterolysis, and open liver biopsy. She suffered from a series of postoperative complications, which included postoperative ascites which was surgically drained on 2 occasions, once in February and once in April. Surgical wound infection and dehiscence occurred, and is currently under treatment by means of oral antibiotics, including Keflex and Levaquin. The patient presented here for evaluation and management regarding her surgical wound dehiscence. Management currently consists of packing of the open portion of the wound with Nu Gauze on a daily basis with respect to the upper wound, which demonstrates significant undermining. Two adjacent wounds contain a large amount of frankly necrotic and nonviable tissue. The patient's surgeon at [facility] in [place], [place], was Dr. Sidney Gonzalez. The patient admits that her appetite recently has been only fair. The amount of frankly necrotic tissue within the depths of the wounds has diminished in recent weeks with the implementation of serial debridements, gauze wound packings, etc. Past Medical History Past Medical History: Chronic Problems Heart murmur (Chronic) Renal insufficiency (Chronic) Hypertension (Chronic) Anemia (Chronic) Obesity (Chronic) Wound infection after surgery (Chronic) Surgical History: - - Patient is undergone hysterectomy in 2004. Tonsillectomy and adenoidectomy were performed in childhood. Patient has recently undergone the procedures previously outlined. She is a Ab0. Allergies/Adverse Reactions: Allergies quetiapine Adverse Reaction (Verified 05/24/17 13:15) Other Home Medications: Ambulatory Orders Medication Instructions Recorded Amlodipine [Norvasc] 5 mg PO DAILY 05/24/17 Cephalexin [Keflex] 500 mg PO TID 05/24/17 Ferrous Sulfate [Iron] 325 mg PO TID 05/24/17 Insulin Aspart [Novolog Flexpen See Protocol SC TIDCM 05/24/17 ([facility])] Insulin Glargine,Hum.rec.anlog 25 unit SQ QHS 05/24/17 [Basaglar Kwikpen U-100] Insulin Glargine,Hum.rec.anlog 15 unit SQ QHS 05/24/17 [Lantus] Levofloxacin [Levaquin] 750 mg PO 05/24/17 Magnesium Oxide [Mag-Ox 400] 400 mg PO BID 05/24/17 Metoprolol Succinate 50 mg PO DAILY 05/24/17 Omeprazole 40 mg PO DAILY 05/24/17 Prochlorperazine Maleate 10 mg PO 05/24/17 Sodium Bicarbonate 650 mg PO BID 05/24/17 Venlafaxine HCl [Effexor] 37.5 mg PO 05/24/17 - Family History Maternal - - Patient's father is . He at the age of 68 with a history of myocardial infarction and asbestosis. Patient's mother is 85 years of age and generally healthy. Smoking Status: Never smoker Tobacco Use: Non-smoker Review of Systems Constitutional: Denies: Chills, Fever, Weight Change Eyes: Denies: Pain, Vision Change HEENT: Denies: Difficulty Hearing, Difficulty Swallowing, Sinus Congestion Cardiovascular: Denies: Chest Pain, Palpitations Respiratory: Denies: Cough, Shortness of Breath Gastrointestinal: Denies: Diarrhea, Nausea, Vomiting Genitourinary: Denies: Dysuria, Hematuria Endocrine: Denies: Heat/ Cold Intolerance, Polydipsia, Polyuria Hematologic/ Lymphatic: Denies: Easy Bruising, Easy Bleeding - Physical Exam Vital Signs Temp Pulse Resp BP 97.8 F 83 18 132/70 H 06/07/17 10:42 06/07/17 10:42 06/07/17 10:42 06/07/17 10:42 General: Alert, Oriented x3, Cooperative, No apparent distress, Well developed, Well nourished, - - The patient appears chronically ill HEENT: Atraumatic, PERRLA, EOMI, Normocephalic Oral: Moist Mucosa Neck: No JVD Lungs: Normal air movement Abdomen: Soft, Non-Distended, - - A pink and healthy ileal conduit is noted to the right of the dehiscent surgical wound. Two open wounds are noted near the inferior portion of the patient's vertical abdominal incision. There is significant undermining. Though it cannot be ascertained, there is suspicion that they may communicate with one another. Wound dimensions are documented elsewhere. There is no sign of infection or cellulitis. However, there is significant amount of nonviable necrotic tissue remaining within the depths of each wound. Extremities: No clubbing, No cyanosis, No edema, No Calf Tenderness Wound Measurements and Assessment - Nurse 1 - General Ulcer Measurement Start: 06/07/17 10:42 Freq: Status: Active Protocol: Activity Type Activity Date Activity User E-Sign Co-Sign Detail Recorded Client Recorded Date Recorded By Document 06/07/17 10:42 DL [id number] 06/07/17 10:51 DL 06/07/17 10:42 Wound Center Nurse 1 [Ulcer Assessment Protocol: WC.WD.LOC] #2- INFERIOR ABD WOUND (SURGICAL INCISION DEHISCENCE) -Current Size (cm) - Length 2.3 -Current Size (cm) - Width 5 -Current Size (cm) - Depth 1.3 -Total Square Cm 11.5 -Photo Taken No -Exudate Amt Medium (34-66%) -Exudate Type Serosanguineous -Wound Margin Distinct, Outline Attached -Granulation Amt Small (1-33%) -Granulation Quality [place] -Necrosis Amt Large (67-100%) -Necrotic Tissue Type Adherent Slough -Structure Exposed N/A -Texture (Mayte-wound Skin Appearance) No Abnormality -Moisture (Mayte-wound Skin Appearance No Abnormality ) -Color (Mayte-wound Skin Appearance) No Abnormality -Temperature ([place]te-wound Skin No Abnormality Appearance) (Pt Warm) -Ulcer Cleansing Rinsed/ Irrigated with Saline -Foul Odor after Cleansing No -Anesthetic Used 4% Lidocaine Solution #1- SUPERIOR ABD WOUND (SURGICAL INCISION DEHISCENCE) -Current Size (cm) - Length 0.8 -Current Size (cm) - Width 1.2 -Current Size (cm) - Depth 2.2 -Total Square Cm 0.96 -Photo Taken No -Undermining/Tunneling Starts (O' 12 clock) -Undermining/Tunneling Ends (O'clock) 3 -Maximum Distance (cm) 2.8 -Exudate Amt Medium (34-66%) -Exudate Type Serosanguineous -Wound Margin Distinct, Outline Attached -Granulation Amt Small (1-33%) -Granulation Quality [place] -Necrosis Amt Large (67-100%) -Necrotic Tissue Type Adherent Slough -Structure Exposed N/A -Texture (Mayte-wound Skin Appearance) Scarring -Moisture (Mayte-wound Skin Appearance No Abnormality ) -Color (Mayte-wound Skin Appearance) No Abnormality -Temperature (Mayte-wound Skin No Abnormality Appearance) (Pt Warm) -Ulcer Cleansing Rinsed/ Irrigated with Saline -Foul Odor after Cleansing No -Anesthetic Used 4% Lidocaine Solution WC - Nurse 2 - General Ulcer CM Notes Start: 06/07/17 10:42 Freq: Status: Active Protocol: Activity Type Activity Date Activity User E-Sign Co-Sign Detail Recorded Client Recorded Date Recorded By Document 06/07/17 11:24 KAVYA [id number] 06/07/17 11:42 KAVYA 06/07/17 11:24 Wound Center Nurse 2 [Procedure/Treatment] #2- INFERIOR ABD WOUND (SURGICAL INCISION DEHISCENCE) -Time 11:24 -Correct Patient Yes -Correct Side, Site, Position Yes -Correct Procedure Yes -Procedure Performed Yes -Type of Procedure Debridement -Clinical Debridement Subcutaneous -Post Debridement Size (cm) - Length 2.4 -Post Debridement Size (cm) - Width 5.1 -Post Debridement Size (cm) - Depth 1.4 -Total Square Cm 12.24 -Wound/Ulcer Outcome Not Healed -Ulcer Cleansing Rinsed/ Irrigated with Saline -Foul Odor after Cleansing No -Bioengineered Tissue No -Cetacaine [place] No -Topical Lidocaine (%) 4 -Lidocaine (ml) 5 -Bleeding Controlled with NA -Treatment Response Procedure Tolerated Well #1- SUPERIOR ABD WOUND (SURGICAL INCISION DEHISCENCE) -Time 11:24 -Correct Patient Yes -Correct Side, Site, Position Yes -Correct Procedure Yes -Procedure Performed Yes -Type of Procedure Debridement -Clinical Debridement Subcutaneous -Post Debridement Size (cm) - Length 0.9 -Post Debridement Size (cm) - Width 1.3 -Post Debridement Size (cm) - Depth 2.3 -Total Square Cm 1.17 -Wound/Ulcer Outcome Not Healed -Ulcer Cleansing Rinsed/ Irrigated with Saline -Foul Odor after Cleansing No -Bioengineered Tissue No -Cetacaine [place] No -Topical Lidocaine (%) 4 -Lidocaine (ml) 5 -Bleeding Controlled with NA -Treatment Response Procedure Tolerated Well [See Physician Procedure note for Specifics] Pain Scale: 0-10 Numeric [Pain] -Is Patient Pain Free? Yes Neurological: Cranial nerves II-XII grossly intact, Neuro grossly intact Psych/Mental Status: Normal Affect, Appropriate, Alert and oriented to time, place, person, mood and affect Debridement Note Post-Debridement Measurements/Treatment WC - Nurse 2 - General Ulcer CM Notes Start: 06/07/17 10:42 Freq: Status: Active Protocol: Activity Type Activity Date Activity User E-Sign Co-Sign Detail Recorded Client Recorded Date Recorded By Document 06/07/17 11:24 KAVYA [id number] 06/07/17 11:42 KAVYA 06/07/17 11:24 Wound Center Nurse 2 #2- INFERIOR ABD WOUND (SURGICAL INCISION DEHISCENCE) -Time 11:24 -Correct Patient Yes -Correct Side, Site, Position Yes -Correct Procedure Yes -Procedure Performed Yes -Type of Procedure Debridement -Clinical Debridement Subcutaneous -Post Debridement Size (cm) - Length 2.4 -Post Debridement Size (cm) - Width 5.1 -Post Debridement Size (cm) - Depth 1.4 -Total Square Cm 12.24 -Wound/Ulcer Outcome Not Healed -Ulcer Cleansing Rinsed/ Irrigated with Saline -Foul Odor after Cleansing No -Bioengineered Tissue No -Cetacaine [place] No -Topical Lidocaine (%) 4 -Lidocaine (ml) 5 -Bleeding Controlled with NA -Treatment Response Procedure Tolerated Well #1- SUPERIOR ABD WOUND (SURGICAL INCISION DEHISCENCE) -Time 11:24 -Correct Patient Yes -Correct Side, Site, Position Yes -Correct Procedure Yes -Procedure Performed Yes -Type of Procedure Debridement -Clinical Debridement Subcutaneous -Post Debridement Size (cm) - Length 0.9 -Post Debridement Size (cm) - Width 1.3 -Post Debridement Size (cm) - Depth 2.3 -Total Square Cm 1.17 -Wound/Ulcer Outcome Not Healed -Ulcer Cleansing Rinsed/ Irrigated with Saline -Foul Odor after Cleansing No -Bioengineered Tissue No -Cetacaine [place] No -Topical Lidocaine (%) 4 -Lidocaine (ml) 5 -Bleeding Controlled with NA -Treatment Response Procedure Tolerated Well Pain Scale: 0-10 Numeric Is Patient Pain Free? Yes Laterality: Not Applicable - Dehiscent abdominal wound Type of Debridement: Excisional debridement Anesthesia Used: 4% Lidocaine Solution Depth: Down to and including healthy tissue, in the subcutaneous layer Percentage of wound debrided: 100 Instrument Used: 5mm curette, Forceps, - - Scissors Severity: Fat Layer Exposed Amount of bleeding with debridement: Mild Bleeding Controlled with: Compression and gauze Patient tolerated procedure well Assessment/Plan Assessment: This is a 61-year-old female with a recent diagnosis of carcinoma of the bladder. She is several months postoperative, and now has significant dehiscence of the inferior portion of her wound, associated with infection. There is a significant amount of undermining, and sheridan necrotic, nonviable tissue within the 2 adjacent wounds. While not yet demonstrated, there is suspicion that the 2 wounds communicate in the subcutaneous planes. Patient's recent cultures have been reviewed, and are positive for Acinetobacter baumannii coag negative staph. Review of the sensitivities reveals rather global resistance to many available antibiotics. Therefore, we are to request a consultation with the infectious disease service. Consultation will take place tomorrow. Laboratory studies have been obtained as well, with results as follows, serum prealbumin 13.0, sodium 137, potassium 4.3, chloride 108, BUN 39 , creatinine 1.7, calcium 8.4, glucose 138, SGOT 20, SGPT 8, alkaline phosphatase 81, total protein 7.4, serum albumin 2.7, white blood count 5.2, hemoglobin 10.7, hematocrit 31.4, platelets 256,000. These findings do suggest a mild anemia, and mild nutritional depletion. The patient's hemoglobin A1c was 5.4. Plan: Patient has been advised to take a well balanced and nutritious diet. She is currently supplementing with a nutritional supplement. Her hemoglobin A1c would suggest relatively good control of the patient's diabetes mellitus. Optimization of her diabetes has been recommended. Packing of both open wounds using gauze. Wound packing with gauze will be performed once or twice daily. We will await recommendations from the infectious disease service. The patient is known to have a venous port in the right clavicular area, which may serve to administer intravenous antibiotic, if advised. Patient is scheduled to undergo a CT scan of the abdomen on June 10, 2017, at [facility]. These results will be awaited. We have requested both a copy of the transcribed report, as well as a disc containing images, which can then be reviewed with our local radiology staff. It is anticipated that the patient will require surgical unroofing and debridement of her extensive dehiscent wounds, and it will be necessary to determine whether the underlying fascial layers are intact. It is my intention to discuss matters with Dr. Gonzalez, to determine whether the surgical debridement might best be performed at his facility in [place], [place]. Patient will return in 1 week for reassessment. At this juncture, her multidisciplinary team of physicians at [facility] anticipates the initiation of immunotherapy in the near future. Patient is to remain on her current oral antibiotics, Keflex and Levaquin, until completion, until we receive recommendations from the ID hospice care consultant. The patient is not a smoker. Influenza vaccine was not administered today. Patient stands 5 feet 9 inches tall. She weighs 153 pounds. Her BMI is 22.6, which is normal.
[2017-06-21 10:59] VITALS: BP 128/80; PULSE 95; RESP 16; TEMP 36.6; BMI 22.6
--- NOTE | 2017-06-21 11:35 | PCM.WC.HP ---
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 Status: Acute Current Visit: Yes Code(s): C67.9 - Malignant neoplasm of bladder, unspecified; C77.5 - Secondary and unspecified malignant neoplasm of intrapelvic lymph nodes (2) History of total cystectomy Status: Acute Current Visit: Yes Code(s): Z98.890 - Other specified postprocedural states (3) Heart murmur Status: Chronic Current Visit: No Code(s): R01.1 - Cardiac murmur, unspecified (4) Renal insufficiency Status: Chronic Current Visit: No Code(s): N28.9 - Disorder of kidney and ureter, unspecified (5) Hypertension Status: Chronic Current Visit: No Qualifiers: Code(s): I10 - Essential (primary) hypertension (6) Anemia Status: Chronic Current Visit: No Code(s): D64.9 - Anemia, unspecified (7) Wound infection after surgery Status: Acute Current Visit: Yes Qualifiers: Encounter type: subsequent encounter Code(s): T81.4XXA - Infection following a procedure, initial encounter (8) Surgical wound dehiscence Status: Acute Current Visit: Yes Qualifiers: Encounter type: subsequent encounter Code(s): T81.31XA - Disruption of external operation (surgical) wound, not elsewhere classified, initial encounter (9) S/P ileal conduit Status: Acute Current Visit: Yes Code(s): Z93.6 - Other artificial openings of urinary tract status History of Present Illness Date of Service: 06/21/17 Chief Complaint: Postoperative surgical wound infection and surgical wound dehiscence of the abdomen History of Wound: This is a 61-year-old female who was diagnosed with bladder cancer earlier this year. 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 Between September and December 2016 patient underwent 6 cycles of neoadjuvant chemotherapy. On February 17, she underwent radical cystectomy with vaginal sparing, ileal conduit urinary diversion, bilateral extended pelvic lymph node resection, bilateral ureterolysis, and open liver biopsy. She suffered from a series of postoperative complications, which included postoperative ascites which was surgically drained on 2 occasions, once in February and once in April. Surgical wound infection and dehiscence occurred, and is currently under treatment by means of oral antibiotics, including Keflex and Levaquin. The patient presented here for evaluation and management regarding her surgical wound dehiscence. Management currently consists of packing of the open portion of the wound with Nu Gauze on a daily basis with respect to the upper wound, which demonstrates significant undermining. Two adjacent wounds contain a large amount of frankly necrotic and nonviable tissue. The patient's urological surgeon at [facility] in [place], [place], was Dr. Sidney Gonzalez. The patient admits that her appetite recently has been only fair. The amount of frankly necrotic tissue within the depths of the wounds has diminished in recent weeks with the implementation of serial debridements, gauze wound packings, etc. the patient underwent a CT scan of the abdomen at [facility] in [place], [place], last week. We have requested that the report of the CT scan results be provided us, as well as a disc of CT scan images. Neither have been received. We will continue in our attempts to obtain these items. Patient is currently under the care of oncologist, Dr. Keo Vargas. Immunotherapy is anticipated to start within the next several weeks at [facility]. Past Medical History Past Medical History: Chronic Problems Heart murmur (Chronic) Renal insufficiency (Chronic) Hypertension (Chronic) Anemia (Chronic) Obesity (Chronic) Surgical History: - - Patient is undergone hysterectomy in 2004. Tonsillectomy and adenoidectomy were performed in childhood. Patient has recently undergone the procedures previously outlined. She is a Ab0. Allergies/Adverse Reactions: Allergies quetiapine Adverse Reaction (Verified 05/24/17 13:15) Other Home Medications: Ambulatory Orders Medication Instructions Recorded Amlodipine [Norvasc] 5 mg PO DAILY 05/24/17 Cephalexin [Keflex] 500 mg PO TID 05/24/17 Ferrous Sulfate [Iron] 325 mg PO TID 05/24/17 Insulin Aspart [Novolog Flexpen See Protocol SC TIDCM 05/24/17 ([facility])] Insulin Glargine,Hum.rec.anlog 25 unit SQ QHS 05/24/17 [Basaglar Kwikpen U-100] Insulin Glargine,Hum.rec.anlog 15 unit SQ QHS 05/24/17 [Lantus] Levofloxacin [Levaquin] 750 mg PO 05/24/17 Magnesium Oxide [Mag-Ox 400] 400 mg PO BID 05/24/17 Metoprolol Succinate 50 mg PO DAILY 05/24/17 Omeprazole 40 mg PO DAILY 05/24/17 Prochlorperazine Maleate 10 mg PO 05/24/17 Sodium Bicarbonate 650 mg PO BID 05/24/17 Venlafaxine HCl [Effexor] 37.5 mg PO 05/24/17 - Family History Maternal - - Patient's father is . He at the age of 68 with a history of myocardial infarction and asbestosis. Patient's mother is 85 years of age and generally healthy. Smoking Status: Never smoker Tobacco Use: Non-smoker Review of Systems Constitutional: Denies: Chills, Fever, Weight Change Eyes: Denies: Pain, Vision Change HEENT: Denies: Difficulty Hearing, Difficulty Swallowing, Sinus Congestion Cardiovascular: Denies: Chest Pain, Palpitations Respiratory: Denies: Cough, Shortness of Breath Gastrointestinal: Denies: Diarrhea, Nausea, Vomiting Genitourinary: Denies: Dysuria, Hematuria Endocrine: Denies: Heat/ Cold Intolerance, Polydipsia, Polyuria Hematologic/ Lymphatic: Denies: Easy Bruising, Easy Bleeding - Physical Exam Vital Signs Temp Pulse Resp BP 98 F 95 16 128/80 H 06/21/17 10:59 06/21/17 10:59 06/21/17 10:59 06/21/17 10:59 General: Alert, Oriented x3, Cooperative, No apparent distress, Well developed, Well nourished, - - The patient is thin and chronically ill appearing HEENT: Atraumatic, PERRLA, EOMI, Normocephalic Oral: Moist Mucosa Neck: No JVD Lungs: Normal air movement Abdomen: Soft, Non Tender, Non-Distended, - - The patient's ileal conduit stoma appears pink and healthy, and functional. The dehiscent surgical wound continues to demonstrate frankly necrotic and nonviable tissue. The nonviable tissue is yellowbrown in appearance, though is less in volume. The dimensions of the open wound have decreased, and are documented elsewhere. There are 2 adjacent wounds, suspected to be coalescent subcutaneously. Within the inferior wound, a surgical suture is visible, appearing to be either nylon or Prolene. Extremities: No clubbing, No cyanosis, No edema, No Calf Tenderness Wound Measurements and Assessment WC - Nurse 1 - General Ulcer Measurement Start: 06/07/17 10:42 Freq: Status: Active Protocol: Activity Type Activity Date Activity User E-Sign Co-Sign Detail Recorded Client Recorded Date Recorded By Document 06/21/17 10:59 [facility] [id number] 06/21/17 11:04 [facility] 06/21/17 10:59 Wound Center Nurse 1 [Ulcer Assessment Protocol: WC.WD.LOC] #2- INFERIOR ABD WOUND (SURGICAL INCISION DEHISCENCE) -Combined with other wound No -Current Size (cm) - Length 1.9 -Current Size (cm) - Width 4.1 -Current Size (cm) - Depth 1.8 -Total Square Cm 7.79 -Photo Taken No -Epithelialization None Present -Tunneling No -Undermining/Tunneling No -Exudate Amt Large (67-100%) -Exudate Type Serosanguineous -Wound Margin Distinct, Outline Attached -Granulation Amt Small (1-33%) -Granulation Quality Pale Red -Slough/Fibrin Yes -Necrosis Amt Large (67-100%) -Necrotic Tissue Type Adherent Slough -Structure Exposed N/A -Texture (Mayte-wound Skin Appearance) Scarring -Moisture (Mayte-wound Skin Appearance Assessed ) -Color (Mayte-wound Skin Appearance) Erythema -Temperature (Mayte-wound Skin No Abnormality Appearance) (Pt Warm) -Tenderness on Palpation (Mayte-wound No Skin Appearance) -Ulcer Cleansing Rinsed/ Irrigated with Saline -Foul Odor after Cleansing No -Anesthetic Used 4% Lidocaine Solution #1- SUPERIOR ABD WOUND (SURGICAL INCISION DEHISCENCE) -Combined with other wound No -Current Size (cm) - Length 0.7 -Current Size (cm) - Width 1 -Current Size (cm) - Depth 1.9 -Total Square Cm 0.7 -Photo Taken No -Epithelialization None Present -Tunneling Yes -Tunneling Position (O'clock) 12 -Tunneling Distance (cm) 3.2 -Tunneling Position #2 (O'clock) 6 -Tunneling Distance #2 (cm) 2.3 -Undermining/Tunneling No -Exudate Amt Large (67-100%) -Exudate Type Serosanguineous -Wound Margin Distinct, Outline Attached -Granulation Amt Small (1-33%) -Granulation Quality Pale Red -Slough/Fibrin Yes -Necrosis Amt Large (67-100%) -Necrotic Tissue Type Adherent Slough -Structure Exposed N/A -Texture (Mayte-wound Skin Appearance) Scarring -Moisture (Mayte-wound Skin Appearance Assessed ) -Color (Mayte-wound Skin Appearance) Erythema -Temperature (Mayte-wound Skin No Abnormality Appearance) (Pt Warm) -Tenderness on Palpation (Mayte-wound No Skin Appearance) -Ulcer Cleansing Rinsed/ Irrigated with Saline -Foul Odor after Cleansing No -Anesthetic Used 4% Lidocaine Solution WC - Nurse 2 - General Ulcer CM Notes Start: 06/07/17 10:42 Freq: Status: Active Protocol: Activity Type Activity Date Activity User E-Sign Co-Sign Detail Recorded Client Recorded Date Recorded By Document 06/21/17 11:18 [email or web address] [id number] 06/21/17 11:32 [email or web address] 06/21/17 11:18 Wound Center Nurse 2 [Procedure/Treatment] #2- INFERIOR ABD WOUND (SURGICAL INCISION DEHISCENCE) -Time 11:18 -Correct Patient Yes -Correct Side, Site, Position Yes -Correct Procedure Yes -Procedure Performed Yes -Type of Procedure Debridement -Clinical Debridement Subcutaneous -Post Debridement Size (cm) - Length 1.9 -Post Debridement Size (cm) - Width 4.1 -Post Debridement Size (cm) - Depth 1.8 -Total Square Cm 7.79 -Wound/Ulcer Outcome Not Healed -Ulcer Cleansing Rinsed/ Irrigated with Saline -Foul Odor after Cleansing No -Bioengineered Tissue No -Cetacaine [place] No -Topical Lidocaine (%) 4 -Lidocaine (ml) 5 -Bleeding Controlled with NA -Treatment Response Procedure Tolerated Well #1- SUPERIOR ABD WOUND (SURGICAL INCISION DEHISCENCE) -Time 11:19 -Correct Patient Yes -Correct Side, Site, Position Yes -Correct Procedure Yes -Procedure Performed Yes -Type of Procedure Debridement -Clinical Debridement Subcutaneous -Post Debridement Size (cm) - Length 0.7 -Post Debridement Size (cm) - Width 1.0 -Post Debridement Size (cm) - Depth 2.0 -Total Square Cm 0.70 -Wound/Ulcer Outcome Not Healed -Ulcer Cleansing Rinsed/ Irrigated with Saline -Foul Odor after Cleansing No -Bioengineered Tissue No -Cetacaine [place] No -Topical Lidocaine (%) 4 -Lidocaine (ml) 5 -Bleeding Controlled with NA -Treatment Response Procedure Tolerated Well [See Physician Procedure note for Specifics] Pain Scale: 0-10 Numeric [Pain] -Is Patient Pain Free? Yes Neurological: Cranial nerves II-XII grossly intact, Neuro grossly intact Psych/Mental Status: Normal Affect, Appropriate, Alert and oriented to time, place, person, mood and affect Debridement Note Post-Debridement Measurements/Treatment WC - Nurse 2 - General Ulcer CM Notes Start: 06/07/17 10:42 Freq: Status: Active Protocol: Activity Type Activity Date Activity User E-Sign Co-Sign Detail Recorded Client Recorded Date Recorded By Document 06/07/17 11:24 [id number] 06/07/17 11:42 JS Document 06/21/17 11:18 JS [id number] 06/21/17 11:32 JS 06/07/17 06/21/17 11:24 11:18 Wound Center Nurse 2 #2- INFERIOR ABD WOUND (SURGICAL INCISION DEHISCENCE) -Time 11:24 11:18 -Correct Patient Yes Yes -Correct Side, Site, Position Yes Yes -Correct Procedure Yes Yes -Procedure Performed Yes Yes -Type of Procedure Debridement Debridement -Clinical Debridement Subcutaneous Subcutaneous -Post Debridement Size (cm) - Length 2.4 1.9 -Post Debridement Size (cm) - Width 5.1 4.1 -Post Debridement Size (cm) - Depth 1.4 1.8 -Total Square Cm 12.24 7.79 -Wound/Ulcer Outcome Not Healed Not Healed -Ulcer Cleansing Rinsed/ Rinsed/ Irrigated with Irrigated with Saline Saline -Foul Odor after Cleansing No No -Bioengineered Tissue No No -Cetacaine [place] No No -Topical Lidocaine (%) 4 4 -Lidocaine (ml) 5 5 -Bleeding Controlled with NA NA -Treatment Response Procedure Procedure Tolerated Well Tolerated Well #1- SUPERIOR ABD WOUND (SURGICAL INCISION DEHISCENCE) -Time 11:24 11:19 -Correct Patient Yes Yes -Correct Side, Site, Position Yes Yes -Correct Procedure Yes Yes -Procedure Performed Yes Yes -Type of Procedure Debridement Debridement -Clinical Debridement Subcutaneous Subcutaneous -Post Debridement Size (cm) - Length 0.9 0.7 -Post Debridement Size (cm) - Width 1.3 1.0 -Post Debridement Size (cm) - Depth 2.3 2.0 -Total Square Cm 1.17 0.70 -Wound/Ulcer Outcome Not Healed Not Healed -Ulcer Cleansing Rinsed/ Rinsed/ Irrigated with Irrigated with Saline Saline -Foul Odor after Cleansing No No -Bioengineered Tissue No No -Cetacaine [place] No No -Topical Lidocaine (%) 4 4 -Lidocaine (ml) 5 5 -Bleeding Controlled with NA NA -Treatment Response Procedure Procedure Tolerated Well Tolerated Well Pain Scale: 0-10 Numeric Is Patient Pain Free? Yes Yes Laterality: Not Applicable - Dehiscent abdominal wound Type of Debridement: Excisional debridement Anesthesia Used: 4% Lidocaine Solution Depth: Down to and including healthy tissue, in the subcutaneous layer Percentage of wound debrided: 100 Instrument Used: Forceps, - - Sterile scissors Severity: Fat Layer Exposed Amount of bleeding with debridement: None Patient tolerated procedure well Assessment/Plan Active Problems Bladder cancer metastasized to intrapelvic lymph nodes (Acute) History of total cystectomy (Acute) Wound infection after surgery (Acute) Surgical wound dehiscence (Acute) S/P ileal conduit (Acute) Assessment: This is a 61-year-old female with a recent diagnosis of carcinoma of the bladder. She is several months postoperative, and now has significant dehiscence of the inferior portion of her wound, associated with infection. There is a significant amount of undermining, and sheridan necrotic, nonviable tissue within the 2 adjacent wounds. While not yet demonstrated, there is suspicion that the 2 wounds communicate in the subcutaneous planes. Patient's recent cultures have been reviewed, and are positive for Acinetobacter baumannii coag negative staph. Review of the sensitivities reveals rather global resistance to many available antibiotics. Therefore, we requested a consultation with the infectious disease service. The patient was seen and evaluated by Dr. Edward, infectious disease specialist, last week, who has added no further recommendations to the patient's management. He has stopped her previously prescribed antibiotics, and is prescribed no new medications or therapies. Laboratory studies have been obtained, with results as follows: serum prealbumin 13.0, sodium 137, potassium 4.3, chloride 108, BUN 39, creatinine 1.7, calcium 8.4, glucose 138, SGOT 20, SGPT 8, alkaline phosphatase 81, total protein 7.4, serum albumin 2.7, white blood count 5.2, hemoglobin 10.7, hematocrit 31.4, platelets 256,000. These findings do suggest a mild anemia, and mild nutritional depletion. The patient's hemoglobin A1c was 5.4. Her blood sugars appear to be running within desirable levels on a daily basis. Plan: Patient has been advised to take a well balanced and nutritious diet. She is currently supplementing with a nutritional supplement. Her hemoglobin A1c would suggest relatively good control of the patient's diabetes mellitus. Optimization of her diabetes has been recommended. Packing of both open wounds using gauze will continue. Wound packing with gauze will be performed once or twice daily. We continue to await the report from her recent CT scan at [facility]. We are seeking both the report and disc from the imaging study. It is anticipated that the patient will require surgical unroofing and debridement of her extensive dehiscent wounds, and it will be necessary to determine whether the underlying fascial layers are intact. It is my intention to discuss matters with Dr. Gonzalez, to determine whether the surgical debridement might best be performed at his facility in [place], [place], given the complexity of the patient's situation and the multidisciplinary approach which is in the patient's best interest. Discussion with the patient's oncologist may also be of some benefit, to determine the patient's prognosis, and to prioritize the patient's management options. Patient will return in 1 week for reassessment. At this juncture, her multidisciplinary team of physicians at [facility] anticipates the initiation of immunotherapy in the near future. We will await the results of the patient's recent CT scan, though preliminary verbal report suggests the presence of persisting lymph node metastasis. The patient is not a smoker. Influenza vaccine was not administered today. Patient stands 5 feet 9 inches tall. She weighs 153 pounds. Her BMI is 22.6, which is normal.
--- NOTE | 2017-06-21 11:48 | HP.PCM_ITS ---
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 Status: Acute Current Visit: Yes Code(s): C67.9 - Malignant neoplasm of bladder, unspecified; C77.5 - Secondary and unspecified malignant neoplasm of intrapelvic lymph nodes (2) History of total cystectomy Status: Acute Current Visit: Yes Code(s): Z98.890 - Other specified postprocedural states (3) Heart murmur Status: Chronic Current Visit: No Code(s): R01.1 - Cardiac murmur, unspecified (4) Renal insufficiency Status: Chronic Current Visit: No Code(s): N28.9 - Disorder of kidney and ureter, unspecified (5) Hypertension Status: Chronic Current Visit: No Qualifiers: Code(s): I10 - Essential (primary) hypertension (6) Anemia Status: Chronic Current Visit: No Code(s): D64.9 - Anemia, unspecified (7) Wound infection after surgery Status: Acute Current Visit: Yes Qualifiers: Encounter type: subsequent encounter Code(s): T81.4XXA - Infection following a procedure, initial encounter (8) Surgical wound dehiscence Status: Acute Current Visit: Yes Qualifiers: Encounter type: subsequent encounter Code(s): T81.31XA - Disruption of external operation (surgical) wound, not elsewhere classified, initial encounter (9) S/P ileal conduit Status: Acute Current Visit: Yes Code(s): Z93.6 - Other artificial openings of urinary tract status History of Present Illness Date of Service: 06/21/17 Chief Complaint: Postoperative surgical wound infection and surgical wound dehiscence of the abdomen History of Wound: This is a 61-year-old female who was diagnosed with bladder cancer earlier this year. 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 Between September and December 2016 patient underwent 6 cycles of neoadjuvant chemotherapy. On February 17, she underwent radical cystectomy with vaginal sparing, ileal conduit urinary diversion, bilateral extended pelvic lymph node resection, bilateral ureterolysis, and open liver biopsy. She suffered from a series of postoperative complications, which included postoperative ascites which was surgically drained on 2 occasions, once in February and once in April. Surgical wound infection and dehiscence occurred, and is currently under treatment by means of oral antibiotics, including Keflex and Levaquin. The patient presented here for evaluation and management regarding her surgical wound dehiscence. Management currently consists of packing of the open portion of the wound with Nu Gauze on a daily basis with respect to the upper wound, which demonstrates significant undermining. Two adjacent wounds contain a large amount of frankly necrotic and nonviable tissue. The patient's urological surgeon at [facility] in [place], [place], was Dr. Sidney Gonzalez. The patient admits that her appetite recently has been only fair. The amount of frankly necrotic tissue within the depths of the wounds has diminished in recent weeks with the implementation of serial debridements, gauze wound packings, etc. the patient underwent a CT scan of the abdomen at [facility] in [place], [place], last week. We have requested that the report of the CT scan results be provided us, as well as a disc of CT scan images. Neither have been received. We will continue in our attempts to obtain these items. Patient is currently under the care of oncologist, Dr. Keo Vargas. Immunotherapy is anticipated to start within the next several weeks at [facility]. Past Medical History Past Medical History: Chronic Problems Heart murmur (Chronic) Renal insufficiency (Chronic) Hypertension (Chronic) Anemia (Chronic) Obesity (Chronic) Surgical History: - - Patient is undergone hysterectomy in 2004. Tonsillectomy and adenoidectomy were performed in childhood. Patient has recently undergone the procedures previously outlined. She is a Ab0. Allergies/Adverse Reactions: Allergies quetiapine Adverse Reaction (Verified 05/24/17 13:15) Other Home Medications: Ambulatory Orders Medication Instructions Recorded Amlodipine [Norvasc] 5 mg PO DAILY 05/24/17 Cephalexin [Keflex] 500 mg PO TID 05/24/17 Ferrous Sulfate [Iron] 325 mg PO TID 05/24/17 Insulin Aspart [Novolog Flexpen See Protocol SC TIDCM 05/24/17 ([facility])] Insulin Glargine,Hum.rec.anlog 25 unit SQ QHS 05/24/17 [Basaglar Kwikpen U-100] Insulin Glargine,Hum.rec.anlog 15 unit SQ QHS 05/24/17 [Lantus] Levofloxacin [Levaquin] 750 mg PO 05/24/17 Magnesium Oxide [Mag-Ox 400] 400 mg PO BID 05/24/17 Metoprolol Succinate 50 mg PO DAILY 05/24/17 Omeprazole 40 mg PO DAILY 05/24/17 Prochlorperazine Maleate 10 mg PO 05/24/17 Sodium Bicarbonate 650 mg PO BID 05/24/17 Venlafaxine HCl [Effexor] 37.5 mg PO 05/24/17 - Family History Maternal - - Patient's father is . He at the age of 68 with a history of myocardial infarction and asbestosis. Patient's mother is 85 years of age and generally healthy. Smoking Status: Never smoker Tobacco Use: Non-smoker Review of Systems Constitutional: Denies: Chills, Fever, Weight Change Eyes: Denies: Pain, Vision Change HEENT: Denies: Difficulty Hearing, Difficulty Swallowing, Sinus Congestion Cardiovascular: Denies: Chest Pain, Palpitations Respiratory: Denies: Cough, Shortness of Breath Gastrointestinal: Denies: Diarrhea, Nausea, Vomiting Genitourinary: Denies: Dysuria, Hematuria Endocrine: Denies: Heat/ Cold Intolerance, Polydipsia, Polyuria Hematologic/ Lymphatic: Denies: Easy Bruising, Easy Bleeding - Physical Exam Vital Signs Temp Pulse Resp BP 98 F 95 16 128/80 H 06/21/17 10:59 06/21/17 10:59 06/21/17 10:59 06/21/17 10:59 General: Alert, Oriented x3, Cooperative, No apparent distress, Well developed, Well nourished, - - The patient is thin and chronically ill appearing HEENT: Atraumatic, PERRLA, EOMI, Normocephalic Oral: Moist Mucosa Neck: No JVD Lungs: Normal air movement Abdomen: Soft, Non Tender, Non-Distended, - - The patient's ileal conduit stoma appears pink and healthy, and functional. The dehiscent surgical wound continues to demonstrate frankly necrotic and nonviable tissue. The nonviable tissue is yellow?brown in appearance, though is less in volume. The dimensions of the open wound have decreased, and are documented elsewhere. There are 2 adjacent wounds, suspected to be coalescent subcutaneously. Within the inferior wound, a surgical suture is visible, appearing to be either nylon or Prolene. Extremities: No clubbing, No cyanosis, No edema, No Calf Tenderness Wound Measurements and Assessment WC - Nurse 1 - General Ulcer Measurement Start: 06/07/17 10:42 Freq: Status: Active Protocol: Activity Type Activity Date Activity User E-Sign Co-Sign Detail Recorded Client Recorded Date Recorded By Document 06/21/17 10:59 [facility] [id number] 06/21/17 11:04 [facility] 06/21/17 10:59 Wound Center Nurse 1 [Ulcer Assessment Protocol: WC.WD.LOC] #2- INFERIOR ABD WOUND (SURGICAL INCISION DEHISCENCE) -Combined with other wound No -Current Size (cm) - Length 1.9 -Current Size (cm) - Width 4.1 -Current Size (cm) - Depth 1.8 -Total Square Cm 7.79 -Photo Taken No -Epithelialization None Present -Tunneling No -Undermining/Tunneling No -Exudate Amt Large (67-100%) -Exudate Type Serosanguineous -Wound Margin Distinct, Outline Attached -Granulation Amt Small (1-33%) -Granulation Quality Pale Red -Slough/Fibrin Yes -Necrosis Amt Large (67-100%) -Necrotic Tissue Type Adherent Slough -Structure Exposed N/A -Texture (Mayte-wound Skin Appearance) Scarring -Moisture (Mayte-wound Skin Appearance Assessed ) -Color (Mayte-wound Skin Appearance) Erythema -Temperature (Mayte-wound Skin No Abnormality Appearance) (Pt Warm) -Tenderness on Palpation (Mayte-wound No Skin Appearance) -Ulcer Cleansing Rinsed/ Irrigated with Saline -Foul Odor after Cleansing No -Anesthetic Used 4% Lidocaine Solution #1- SUPERIOR ABD WOUND (SURGICAL INCISION DEHISCENCE) -Combined with other wound No -Current Size (cm) - Length 0.7 -Current Size (cm) - Width 1 -Current Size (cm) - Depth 1.9 -Total Square Cm 0.7 -Photo Taken No -Epithelialization None Present -Tunneling Yes -Tunneling Position (O'clock) 12 -Tunneling Distance (cm) 3.2 -Tunneling Position #2 (O'clock) 6 -Tunneling Distance #2 (cm) 2.3 -Undermining/Tunneling No -Exudate Amt Large (67-100%) -Exudate Type Serosanguineous -Wound Margin Distinct, Outline Attached -Granulation Amt Small (1-33%) -Granulation Quality Pale Red -Slough/Fibrin Yes -Necrosis Amt Large (67-100%) -Necrotic Tissue Type Adherent Slough -Structure Exposed N/A -Texture (Mayte-wound Skin Appearance) Scarring -Moisture (Mayte-wound Skin Appearance Assessed ) -Color (Mayte-wound Skin Appearance) Erythema -Temperature (Mayte-wound Skin No Abnormality Appearance) (Pt Warm) -Tenderness on Palpation (Mayte-wound No Skin Appearance) -Ulcer Cleansing Rinsed/ Irrigated with Saline -Foul Odor after Cleansing No -Anesthetic Used 4% Lidocaine Solution WC - Nurse 2 - General Ulcer CM Notes Start: 06/07/17 10:42 Freq: Status: Active Protocol: Activity Type Activity Date Activity User E-Sign Co-Sign Detail Recorded Client Recorded Date Recorded By Document 06/21/17 11:18 KAV[facility] [id number] 06/21/17 11:32 KAVYA 06/21/17 11:18 Wound Center Nurse 2 [Procedure/Treatment] #2- INFERIOR ABD WOUND (SURGICAL INCISION DEHISCENCE) -Time 11:18 -Correct Patient Yes -Correct Side, Site, Position Yes -Correct Procedure Yes -Procedure Performed Yes -Type of Procedure Debridement -Clinical Debridement Subcutaneous -Post Debridement Size (cm) - Length 1.9 -Post Debridement Size (cm) - Width 4.1 -Post Debridement Size (cm) - Depth 1.8 -Total Square Cm 7.79 -Wound/Ulcer Outcome Not Healed -Ulcer Cleansing Rinsed/ Irrigated with Saline -Foul Odor after Cleansing No -Bioengineered Tissue No -Cetacaine [place] No -Topical Lidocaine (%) 4 -Lidocaine (ml) 5 -Bleeding Controlled with NA -Treatment Response Procedure Tolerated Well #1- SUPERIOR ABD WOUND (SURGICAL INCISION DEHISCENCE) -Time 11:19 -Correct Patient Yes -Correct Side, Site, Position Yes -Correct Procedure Yes -Procedure Performed Yes -Type of Procedure Debridement -Clinical Debridement Subcutaneous -Post Debridement Size (cm) - Length 0.7 -Post Debridement Size (cm) - Width 1.0 -Post Debridement Size (cm) - Depth 2.0 -Total Square Cm 0.70 -Wound/Ulcer Outcome Not Healed -Ulcer Cleansing Rinsed/ Irrigated with Saline -Foul Odor after Cleansing No -Bioengineered Tissue No -Cetacaine [place] No -Topical Lidocaine (%) 4 -Lidocaine (ml) 5 -Bleeding Controlled with NA -Treatment Response Procedure Tolerated Well [See Physician Procedure note for Specifics] Pain Scale: 0-10 Numeric [Pain] -Is Patient Pain Free? Yes Neurological: Cranial nerves II-XII grossly intact, Neuro grossly intact Psych/Mental Status: Normal Affect, Appropriate, Alert and oriented to time, place, person, mood and affect Debridement Note Post-Debridement Measurements/Treatment WC - Nurse 2 - General Ulcer CM Notes Start: 06/07/17 10:42 Freq: Status: Active Protocol: Activity Type Activity Date Activity User E-Sign Co-Sign Detail Recorded Client Recorded Date Recorded By Document 06/07/17 11:24 [id number] 06/07/17 11:42 JS Document 06/21/17 11:18 JS [id number] 06/21/17 11:32 JS 06/07/17 06/21/17 11:24 11:18 Wound Center Nurse 2 #2- INFERIOR ABD WOUND (SURGICAL INCISION DEHISCENCE) -Time 11:24 11:18 -Correct Patient Yes Yes -Correct Side, Site, Position Yes Yes -Correct Procedure Yes Yes -Procedure Performed Yes Yes -Type of Procedure Debridement Debridement -Clinical Debridement Subcutaneous Subcutaneous -Post Debridement Size (cm) - Length 2.4 1.9 -Post Debridement Size (cm) - Width 5.1 4.1 -Post Debridement Size (cm) - Depth 1.4 1.8 -Total Square Cm 12.24 7.79 -Wound/Ulcer Outcome Not Healed Not Healed -Ulcer Cleansing Rinsed/ Rinsed/ Irrigated with Irrigated with Saline Saline -Foul Odor after Cleansing No No -Bioengineered Tissue No No -Cetacaine [place] No No -Topical Lidocaine (%) 4 4 -Lidocaine (ml) 5 5 -Bleeding Controlled with NA NA -Treatment Response Procedure Procedure Tolerated Well Tolerated Well #1- SUPERIOR ABD WOUND (SURGICAL INCISION DEHISCENCE) -Time 11:24 11:19 -Correct Patient Yes Yes -Correct Side, Site, Position Yes Yes -Correct Procedure Yes Yes -Procedure Performed Yes Yes -Type of Procedure Debridement Debridement -Clinical Debridement Subcutaneous Subcutaneous -Post Debridement Size (cm) - Length 0.9 0.7 -Post Debridement Size (cm) - Width 1.3 1.0 -Post Debridement Size (cm) - Depth 2.3 2.0 -Total Square Cm 1.17 0.70 -Wound/Ulcer Outcome Not Healed Not Healed -Ulcer Cleansing Rinsed/ Rinsed/ Irrigated with Irrigated with Saline Saline -Foul Odor after Cleansing No No -Bioengineered Tissue No No -Cetacaine [place] No No -Topical Lidocaine (%) 4 4 -Lidocaine (ml) 5 5 -Bleeding Controlled with NA NA -Treatment Response Procedure Procedure Tolerated Well Tolerated Well Pain Scale: 0-10 Numeric Is Patient Pain Free? Yes Yes Laterality: Not Applicable - Dehiscent abdominal wound Type of Debridement: Excisional debridement Anesthesia Used: 4% Lidocaine Solution Depth: Down to and including healthy tissue, in the subcutaneous layer Percentage of wound debrided: 100 Instrument Used: Forceps, - - Sterile scissors Severity: Fat Layer Exposed Amount of bleeding with debridement: None Patient tolerated procedure well Assessment/Plan Active Problems Bladder cancer metastasized to intrapelvic lymph nodes (Acute) History of total cystectomy (Acute) Wound infection after surgery (Acute) Surgical wound dehiscence (Acute) S/P ileal conduit (Acute) Assessment: This is a 61-year-old female with a recent diagnosis of carcinoma of the bladder. She is several months postoperative, and now has significant dehiscence of the inferior portion of her wound, associated with infection. There is a significant amount of undermining, and sheridan necrotic, nonviable tissue within the 2 adjacent wounds. While not yet demonstrated, there is suspicion that the 2 wounds communicate in the subcutaneous planes. Patient's recent cultures have been reviewed, and are positive for Acinetobacter baumannii coag negative staph. Review of the sensitivities reveals rather global resistance to many available antibiotics. Therefore, we requested a consultation with the infectious disease service. The patient was seen and evaluated by Dr. Edward, infectious disease specialist, last week, who has added no further recommendations to the patient's management. He has stopped her previously prescribed antibiotics, and is prescribed no new medications or therapies. Laboratory studies have been obtained, with results as follows: serum prealbumin 13.0, sodium 137, potassium 4.3, chloride 108, BUN 39, creatinine 1.7, calcium 8.4, glucose 138, SGOT 20, SGPT 8, alkaline phosphatase 81, total protein 7.4, serum albumin 2.7, white blood count 5.2, hemoglobin 10.7 , hematocrit 31.4, platelets 256,000. These findings do suggest a mild anemia, and mild nutritional depletion. The patient's hemoglobin A1c was 5.4. Her blood sugars appear to be running within desirable levels on a daily basis. Plan: Patient has been advised to take a well balanced and nutritious diet. She is currently supplementing with a nutritional supplement. Her hemoglobin A1c would suggest relatively good control of the patient's diabetes mellitus. Optimization of her diabetes has been recommended. Packing of both open wounds using gauze will continue. Wound packing with gauze will be performed once or twice daily. We continue to await the report from her recent CT scan at [facility]. We are seeking both the report and disc from the imaging study. It is anticipated that the patient will require surgical unroofing and debridement of her extensive dehiscent wounds, and it will be necessary to determine whether the underlying fascial layers are intact. It is my intention to discuss matters with Dr. Gonzalez, to determine whether the surgical debridement might best be performed at his facility in [place], [place], given the complexity of the patient's situation and the multidisciplinary approach which is in the patient's best interest. Discussion with the patient's oncologist may also be of some benefit, to determine the patient's prognosis, and to prioritize the patient's management options. Patient will return in 1 week for reassessment. At this juncture, her multidisciplinary team of physicians at [facility] anticipates the initiation of immunotherapy in the near future. We will await the results of the patient's recent CT scan, though preliminary verbal report suggests the presence of persisting lymph node metastasis. The patient is not a smoker. Influenza vaccine was not administered today. Patient stands 5 feet 9 inches tall. She weighs 153 pounds. Her BMI is 22.6, which is normal.
[2017-07-04 12:58] VITALS: BP 131/75; PULSE 86; RESP 16; TEMP 35.9; BMI 22.6
--- NOTE | 2017-07-04 14:18 | PCM.WC.HP ---
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 Status: Acute Current Visit: Yes Code(s): C67.9 - Malignant neoplasm of bladder, unspecified; C77.5 - Secondary and unspecified malignant neoplasm of intrapelvic lymph nodes (2) History of total cystectomy Status: Acute Current Visit: Yes Code(s): Z98.890 - Other specified postprocedural states (3) Heart murmur Status: Chronic Current Visit: No Code(s): R01.1 - Cardiac murmur, unspecified (4) Renal insufficiency Status: Chronic Current Visit: No Code(s): N28.9 - Disorder of kidney and ureter, unspecified (5) Hypertension Status: Chronic Current Visit: No Qualifiers: Code(s): I10 - Essential (primary) hypertension (6) Anemia Status: Chronic Current Visit: No Code(s): D64.9 - Anemia, unspecified (7) Wound infection after surgery Status: Acute Current Visit: Yes Qualifiers: Encounter type: subsequent encounter Code(s): T81.4XXA - Infection following a procedure, initial encounter (8) Surgical wound dehiscence Status: Acute Current Visit: Yes Qualifiers: Encounter type: subsequent encounter Code(s): T81.31XA - Disruption of external operation (surgical) wound, not elsewhere classified, initial encounter (9) S/P ileal conduit Status: Acute Current Visit: Yes Code(s): Z93.6 - Other artificial openings of urinary tract status History of Present Illness Date of Service: 07/04/17 Chief Complaint: Postoperative surgical wound infection and surgical wound dehiscence of the abdomen History of Wound: This is a 61-year-old female who was diagnosed with bladder cancer earlier this year. 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 Between September and December 2016 patient underwent 6 cycles of neoadjuvant chemotherapy. On February 17, she underwent radical cystectomy with vaginal sparing, ileal conduit urinary diversion, bilateral extended pelvic lymph node resection, bilateral ureterolysis, and open liver biopsy. She suffered from a series of postoperative complications, which included postoperative ascites which was surgically drained on 2 occasions, once in February and once in April. Surgical wound infection and dehiscence occurred. The patient presented here for evaluation and management regarding her surgical wound dehiscence. Management currently consists of packing of the two adjacent open wounds with Nu Gauze on a daily basis, each of which demonstrate significant undermining. Two adjacent wounds contain a large amount of frankly necrotic and nonviable tissue. The patient's urological surgeon at [facility] in [place], [place], was Dr. Sidney Gonazlez. The patient admits that her appetite recently has been only fair. The amount of frankly necrotic tissue within the depths of the wounds has diminished in recent weeks with the implementation of serial debridements, gauze wound packings, etc. The patient underwent a CT scan of the abdomen at [facility] in [place], [place], on June 10, 2017, results of which reveal a small to moderate left pleural effusion, increased mild to moderate periaortic and left common iliac adenopathy, suspicious for malignant adenopathy. Cutaneous defects in the lower abdominal wall with subcutaneous focal emphysema and suspicion for abscess and cutaneous fistula. Patient is currently under the care of oncologist, Dr. Keo Vargas. Immunotherapy is anticipated to start within the next several weeks at [facility]. She is scheduled for testing for immunotherapy on July 27, as a prelude to actual initiation of immunotherapy. Past Medical History Past Medical History: Chronic Problems Heart murmur (Chronic) Renal insufficiency (Chronic) Hypertension (Chronic) Anemia (Chronic) Obesity (Chronic) Surgical History: - - Patient is undergone hysterectomy in 2005. Tonsillectomy and adenoidectomy were performed in childhood. Patient has recently undergone the procedures previously outlined. She is a Ab0. Allergies/Adverse Reactions: Allergies quetiapine Adverse Reaction (Verified 05/24/17 13:15) Other Home Medications: Ambulatory Orders Medication Instructions Recorded Amlodipine [Norvasc] 5 mg PO DAILY 05/24/17 Cephalexin [Keflex] 500 mg PO TID 05/24/17 Ferrous Sulfate [Iron] 325 mg PO TID 05/24/17 Insulin Aspart [Novolog Flexpen See Protocol SC TIDCM 05/24/17 ([facility])] Insulin Glargine,Hum.rec.anlog 25 unit SQ QHS 05/24/17 [Basaglar Kwikpen U-100] Insulin Glargine,Hum.rec.anlog 15 unit SQ QHS 05/24/17 [Lantus] Levofloxacin [Levaquin] 750 mg PO 05/24/17 Magnesium Oxide [Mag-Ox 400] 400 mg PO BID 05/24/17 Metoprolol Succinate 50 mg PO DAILY 05/24/17 Omeprazole 40 mg PO DAILY 05/24/17 Prochlorperazine Maleate 10 mg PO 05/24/17 Sodium Bicarbonate 650 mg PO BID 05/24/17 Venlafaxine HCl [Effexor] 37.5 mg PO 05/24/17 - Family History Maternal - - Patient's father is . He at the age of 68 with a history of myocardial infarction and asbestosis. Patient's mother is 85 years of age and generally healthy. Smoking Status: Never smoker Tobacco Use: Non-smoker Review of Systems Constitutional: Denies: Chills, Fever, Weight Change Eyes: Denies: Pain, Vision Change HEENT: Denies: Difficulty Hearing, Difficulty Swallowing, Sinus Congestion Cardiovascular: Denies: Chest Pain, Palpitations Respiratory: Denies: Cough, Shortness of Breath Gastrointestinal: Denies: Diarrhea, Nausea, Vomiting Genitourinary: Denies: Dysuria, Hematuria Endocrine: Denies: Heat/ Cold Intolerance, Polydipsia, Polyuria Hematologic/ Lymphatic: Denies: Easy Bruising, Easy Bleeding - Physical Exam Vital Signs Temp Pulse Resp BP 96.7 F L 86 16 131/75 H 07/04/17 12:58 07/04/17 12:58 07/04/17 12:58 07/04/17 12:58 General: Alert, Oriented x3, Cooperative, No apparent distress, Well developed, Well nourished, - - Patient appears chronically ill and somewhat weak HEENT: Atraumatic, PERRLA, EOMI, Normocephalic Oral: Moist Mucosa Neck: No JVD Lungs: Normal air movement Abdomen: Soft, Non-Distended, - - Patient's urinary ileal conduit is pink, healthy, and functional. The 2 open wounds at the surgical dehiscent site continue to demonstrate a large amount of nonviable and necrotic tissue. It is now evident that each of the 2 adjacent wounds are contiguous with each other in the subcutaneous space. There is a significant amount of undermining associated with both open wounds. Extremities: No clubbing, No cyanosis, No edema, No Calf Tenderness Wound Measurements and Assessment WC - Nurse 1 - General Ulcer Measurement Start: 06/07/17 10:42 Freq: Status: Active Protocol: Activity Type Activity Date Activity User E-Sign Co-Sign Detail Recorded Client Recorded Date Recorded By Document 07/04/17 12:58 [facility] [id number] 07/04/17 13:17 [facility] 07/04/17 12:58 Wound Center Nurse 1 [Ulcer Assessment Protocol: WC.WD.LOC] #2- INFERIOR ABD WOUND (SURGICAL INCISION DEHISCENCE) -Combined with other wound No -Current Size (cm) - Length 1.3 -Current Size (cm) - Width 3.4 -Current Size (cm) - Depth 1.3 -Total Square Cm 4.42 -Date of Last Picture (Recall this 07/04/17 field) -Photo Taken Yes -Epithelialization None Present -Circular Undermining Yes -Exudate Amt Medium (34-66%) -Exudate Type Serosanguineous -Wound Margin Distinct, Outline Attached -Granulation Amt None Present (0 %) -Slough/Fibrin Yes -Necrosis Amt Large (67-100%) -Necrotic Tissue Type Adherent Slough -Structure Exposed N/A -Texture (Mayte-wound Skin Appearance) Scarring -Moisture (Mayte-wound Skin Appearance Assessed ) -Color (Mayte-wound Skin Appearance) Erythema -Temperature (Mayte-wound Skin No Abnormality Appearance) (Pt Warm) -Tenderness on Palpation (Mayte-wound No Skin Appearance) -Ulcer Cleansing Rinsed/ Irrigated with Saline -Foul Odor after Cleansing No -Anesthetic Used 4% Lidocaine Solution #1- SUPERIOR ABD WOUND (SURGICAL INCISION DEHISCENCE) -Combined with other wound No -Current Size (cm) - Length 1 -Current Size (cm) - Width 0.7 -Current Size (cm) - Depth 1.5 -Total Square Cm 0.7 -Date of Last Picture (Recall this 07/04/17 field) -Photo Taken Yes -Epithelialization None Present -Tunneling Yes -Tunneling Position (O'clock) 5 -Tunneling Distance (cm) 3.1 -Tunneling Position #2 (O'clock) 12 -Tunneling Distance #2 (cm) 3.5 -Undermining/Tunneling No -Exudate Amt Medium (34-66%) -Exudate Type Serosanguineous -Wound Margin Distinct, Outline Attached -Granulation Amt Small (1-33%) -Granulation Quality Red -Slough/Fibrin Yes -Necrosis Amt Large (67-100%) -Necrotic Tissue Type Adherent Slough -Structure Exposed N/A -Texture (Mayte-wound Skin Appearance) Scarring -Moisture (Mayte-wound Skin Appearance Assessed ) -Color (Mayte-wound Skin Appearance) Erythema -Temperature (Mayte-wound Skin No Abnormality Appearance) (Pt Warm) -Tenderness on Palpation (Mayte-wound No Skin Appearance) -Ulcer Cleansing Rinsed/ Irrigated with Saline -Foul Odor after Cleansing No -Anesthetic Used 4% Lidocaine Solution Neurological: Cranial nerves II-XII grossly intact, Neuro grossly intact Psych/Mental Status: Normal Affect, Appropriate, Alert and oriented to time, place, person, mood and affect Debridement Note Post-Debridement Measurements/Treatment WC - Nurse 2 - General Ulcer CM Notes Start: 06/07/17 10:42 Freq: Status: Active Protocol: Activity Type Activity Date Activity User E-Sign Co-Sign Detail Recorded Client Recorded Date Recorded By Document 06/07/17 11:24 [id number] 06/07/17 11:42 JS Document 06/21/17 11:18 [id number] 06/21/17 11:32 JS 06/07/17 06/21/17 11:24 11:18 Wound Center Nurse 2 #2- INFERIOR ABD WOUND (SURGICAL INCISION DEHISCENCE) -Time 11:24 11:18 -Correct Patient Yes Yes -Correct Side, Site, Position Yes Yes -Correct Procedure Yes Yes -Procedure Performed Yes Yes -Type of Procedure Debridement Debridement -Clinical Debridement Subcutaneous Subcutaneous -Post Debridement Size (cm) - Length 2.4 1.9 -Post Debridement Size (cm) - Width 5.1 4.1 -Post Debridement Size (cm) - Depth 1.4 1.8 -Total Square Cm 12.24 7.79 -Wound/Ulcer Outcome Not Healed Not Healed -Ulcer Cleansing Rinsed/ Rinsed/ Irrigated with Irrigated with Saline Saline -Foul Odor after Cleansing No No -Bioengineered Tissue No No -Cetacaine Makanda No No -Topical Lidocaine (%) 4 4 -Lidocaine (ml) 5 5 -Bleeding Controlled with NA NA -Treatment Response Procedure Procedure Tolerated Well Tolerated Well #1- SUPERIOR ABD WOUND (SURGICAL INCISION DEHISCENCE) -Time 11:24 11:19 -Correct Patient Yes Yes -Correct Side, Site, Position Yes Yes -Correct Procedure Yes Yes -Procedure Performed Yes Yes -Type of Procedure Debridement Debridement -Clinical Debridement Subcutaneous Subcutaneous -Post Debridement Size (cm) - Length 0.9 0.7 -Post Debridement Size (cm) - Width 1.3 1.0 -Post Debridement Size (cm) - Depth 2.3 2.0 -Total Square Cm 1.17 0.70 -Wound/Ulcer Outcome Not Healed Not Healed -Ulcer Cleansing Rinsed/ Rinsed/ Irrigated with Irrigated with Saline Saline -Foul Odor after Cleansing No No -Bioengineered Tissue No No -Cetacaine Makanda No No -Topical Lidocaine (%) 4 4 -Lidocaine (ml) 5 5 -Bleeding Controlled with NA NA -Treatment Response Procedure Procedure Tolerated Well Tolerated Well Pain Scale: 0-10 Numeric Is Patient Pain Free? Yes Yes Laterality: Not Applicable - Dehiscent surgical abdominal wound Type of Debridement: Excisional debridement Anesthesia Used: 4% Lidocaine Solution Depth: Down to and including healthy tissue, in the subcutaneous layer Percentage of wound debrided: 100 Instrument Used: 5mm curette, Forceps, - - Scissors Severity: Fat Layer Exposed Amount of bleeding with debridement: Mild Bleeding Controlled with: Compression and gauze Patient tolerated procedure well Assessment/Plan Active Problems Bladder cancer metastasized to intrapelvic lymph nodes (Acute) History of total cystectomy (Acute) Wound infection after surgery (Acute) Surgical wound dehiscence (Acute) S/P ileal conduit (Acute) Assessment: This is a 61-year-old female with a recent diagnosis of carcinoma of the bladder. She is several months postoperative, and now has significant dehiscence of the inferior portion of her wound, associated with infection. There is a significant amount of undermining, and sheridan necrotic, nonviable tissue within the 2 adjacent wounds. The 2 wounds communicate in the subcutaneous planes. Patient's recent cultures have been reviewed, and are positive for Acinetobacter baumannii coag negative staph. Review of the sensitivities reveals rather global resistance to many available antibiotics. Therefore, we requested a consultation with the infectious disease service. The patient was seen and evaluated by Dr. Edward, infectious disease specialist, last week, who has added no further recommendations to the patient's management. He has stopped her previously prescribed antibiotics, and is prescribed no new medications or therapies. Laboratory studies have been obtained, with results as follows: serum prealbumin 13.0, sodium 137, potassium 4.3, chloride 108, BUN 39, creatinine 1.7, calcium 8.4, glucose 138, SGOT 20, SGPT 8, alkaline phosphatase 81, total protein 7.4, serum albumin 2.7, white blood count 5.2, hemoglobin 10.7, hematocrit 31.4, platelets 256,000. These findings do suggest a mild anemia, and mild nutritional depletion. The patient's hemoglobin A1c was 5.4. Her blood sugars appear to be running within desirable levels on a daily basis. Plan: Patient has been advised to take a well balanced and nutritious diet. She is currently supplementing with a nutritional supplement. Her hemoglobin A1c would suggest relatively good control of the patient's diabetes mellitus. Optimization of her diabetes has been recommended. Packing of both open wounds using gauze will continue. Wound packing with gauze will be performed once or twice daily. It is anticipated that the patient will require surgical unroofing and debridement of her extensive dehiscent wounds, and it will be necessary to determine whether the underlying fascial layers are intact. It is my intention to discuss matters with the patient's providers at [facility]. It is anticipated that the resources at that facility are more appropriate to the patient's needs if surgical intervention is required. At this time, we will continue conservative treatment as a form of maintenance. Certainly, there are issues with respect to the patient's prognosis, given the persistence of malignant lymphadenopathy within the patient's abdomen and pelvis. Discussion with the patient's oncologist may be of some benefit, to determine the patient's prognosis, and to prioritize the patient's management options. Patient will return in 1 week for reassessment. At this juncture, her multidisciplinary team of physicians at [facility] anticipates the initiation of immunotherapy in the near future. The patient is not a smoker. Influenza vaccine was not administered today. Patient stands 5 feet 9 inches tall. She weighs 153 pounds. Her BMI is 22.6, which is normal.
--- NOTE | 2017-07-04 14:29 | HP.PCM_ITS ---
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 Status: Acute Current Visit: Yes Code(s): C67.9 - Malignant neoplasm of bladder, unspecified; C77.5 - Secondary and unspecified malignant neoplasm of intrapelvic lymph nodes (2) History of total cystectomy Status: Acute Current Visit: Yes Code(s): Z98.890 - Other specified postprocedural states (3) Heart murmur Status: Chronic Current Visit: No Code(s): R01.1 - Cardiac murmur, unspecified (4) Renal insufficiency Status: Chronic Current Visit: No Code(s): N28.9 - Disorder of kidney and ureter, unspecified (5) Hypertension Status: Chronic Current Visit: No Qualifiers: Code(s): I10 - Essential (primary) hypertension (6) Anemia Status: Chronic Current Visit: No Code(s): D64.9 - Anemia, unspecified (7) Wound infection after surgery Status: Acute Current Visit: Yes Qualifiers: Encounter type: subsequent encounter Code(s): T81.4XXA - Infection following a procedure, initial encounter (8) Surgical wound dehiscence Status: Acute Current Visit: Yes Qualifiers: Encounter type: subsequent encounter Code(s): T81.31XA - Disruption of external operation (surgical) wound, not elsewhere classified, initial encounter (9) S/P ileal conduit Status: Acute Current Visit: Yes Code(s): Z93.6 - Other artificial openings of urinary tract status History of Present Illness Date of Service: 07/04/17 Chief Complaint: Postoperative surgical wound infection and surgical wound dehiscence of the abdomen History of Wound: This is a 61-year-old female who was diagnosed with bladder cancer earlier this year. 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 Between September and December 2016 patient underwent 6 cycles of neoadjuvant chemotherapy. On February 17, she underwent radical cystectomy with vaginal sparing, ileal conduit urinary diversion, bilateral extended pelvic lymph node resection, bilateral ureterolysis, and open liver biopsy. She suffered from a series of postoperative complications, which included postoperative ascites which was surgically drained on 2 occasions, once in February and once in April. Surgical wound infection and dehiscence occurred. The patient presented here for evaluation and management regarding her surgical wound dehiscence. Management currently consists of packing of the two adjacent open wounds with Nu Gauze on a daily basis, each of which demonstrate significant undermining. Two adjacent wounds contain a large amount of frankly necrotic and nonviable tissue. The patient's urological surgeon at [facility] in [place], [place], was Dr. Sidney Gonzalez. The patient admits that her appetite recently has been only fair. The amount of frankly necrotic tissue within the depths of the wounds has diminished in recent weeks with the implementation of serial debridements, gauze wound packings, etc. The patient underwent a CT scan of the abdomen at [facility] in [place], [place], on June 10, 2017, results of which reveal a small to moderate left pleural effusion, increased mild to moderate periaortic and left common iliac adenopathy, suspicious for malignant adenopathy. Cutaneous defects in the lower abdominal wall with subcutaneous focal emphysema and suspicion for abscess and cutaneous fistula. Patient is currently under the care of oncologist, Dr. Keo Vargas. Immunotherapy is anticipated to start within the next several weeks at [facility]. She is scheduled for testing for immunotherapy on July 27, as a prelude to actual initiation of immunotherapy. Past Medical History Past Medical History: Chronic Problems Heart murmur (Chronic) Renal insufficiency (Chronic) Hypertension (Chronic) Anemia (Chronic) Obesity (Chronic) Surgical History: - - Patient is undergone hysterectomy in 2005. Tonsillectomy and adenoidectomy were performed in childhood. Patient has recently undergone the procedures previously outlined. She is a Ab0. Allergies/Adverse Reactions: Allergies quetiapine Adverse Reaction (Verified 05/24/17 13:15) Other Home Medications: Ambulatory Orders Medication Instructions Recorded Amlodipine [Norvasc] 5 mg PO DAILY 05/24/17 Cephalexin [Keflex] 500 mg PO TID 05/24/17 Ferrous Sulfate [Iron] 325 mg PO TID 05/24/17 Insulin Aspart [Novolog Flexpen See Protocol SC TIDCM 05/24/17 ([facility])] Insulin Glargine,Hum.rec.anlog 25 unit SQ QHS 05/24/17 [Basaglar Kwikpen U-100] Insulin Glargine,Hum.rec.anlog 15 unit SQ QHS 05/24/17 [Lantus] Levofloxacin [Levaquin] 750 mg PO 05/24/17 Magnesium Oxide [Mag-Ox 400] 400 mg PO BID 05/24/17 Metoprolol Succinate 50 mg PO DAILY 05/24/17 Omeprazole 40 mg PO DAILY 05/24/17 Prochlorperazine Maleate 10 mg PO 05/24/17 Sodium Bicarbonate 650 mg PO BID 05/24/17 Venlafaxine HCl [Effexor] 37.5 mg PO 05/24/17 - Family History Maternal - - Patient's father is . He at the age of 68 with a history of myocardial infarction and asbestosis. Patient's mother is 85 years of age and generally healthy. Smoking Status: Never smoker Tobacco Use: Non-smoker Review of Systems Constitutional: Denies: Chills, Fever, Weight Change Eyes: Denies: Pain, Vision Change HEENT: Denies: Difficulty Hearing, Difficulty Swallowing, Sinus Congestion Cardiovascular: Denies: Chest Pain, Palpitations Respiratory: Denies: Cough, Shortness of Breath Gastrointestinal: Denies: Diarrhea, Nausea, Vomiting Genitourinary: Denies: Dysuria, Hematuria Endocrine: Denies: Heat/ Cold Intolerance, Polydipsia, Polyuria Hematologic/ Lymphatic: Denies: Easy Bruising, Easy Bleeding - Physical Exam Vital Signs Temp Pulse Resp BP 96.7 F L 86 16 131/75 H 07/04/17 12:58 07/04/17 12:58 07/04/17 12:58 07/04/17 12:58 General: Alert, Oriented x3, Cooperative, No apparent distress, Well developed, Well nourished, - - Patient appears chronically ill and somewhat weak HEENT: Atraumatic, PERRLA, EOMI, Normocephalic Oral: Moist Mucosa Neck: No JVD Lungs: Normal air movement Abdomen: Soft, Non-Distended, - - Patient's urinary ileal conduit is pink, healthy, and functional. The 2 open wounds at the surgical dehiscent site continue to demonstrate a large amount of nonviable and necrotic tissue. It is now evident that each of the 2 adjacent wounds are contiguous with each other in the subcutaneous space. There is a significant amount of undermining associated with both open wounds. Extremities: No clubbing, No cyanosis, No edema, No Calf Tenderness Wound Measurements and Assessment WC - Nurse 1 - General Ulcer Measurement Start: 06/07/17 10:42 Freq: Status: Active Protocol: Activity Type Activity Date Activity User E-Sign Co-Sign Detail Recorded Client Recorded Date Recorded By Document 07/04/17 12:58 [facility] [id number] 07/04/17 13:17 [facility] 07/04/17 12:58 Wound Center Nurse 1 [Ulcer Assessment Protocol: WC.WD.LOC] #2- INFERIOR ABD WOUND (SURGICAL INCISION DEHISCENCE) -Combined with other wound No -Current Size (cm) - Length 1.3 -Current Size (cm) - Width 3.4 -Current Size (cm) - Depth 1.3 -Total Square Cm 4.42 -Date of Last Picture (Recall this 07/04/17 field) -Photo Taken Yes -Epithelialization None Present -Circular Undermining Yes -Exudate Amt Medium (34-66%) -Exudate Type Serosanguineous -Wound Margin Distinct, Outline Attached -Granulation Amt None Present (0 %) -Slough/Fibrin Yes -Necrosis Amt Large (67-100%) -Necrotic Tissue Type Adherent Slough -Structure Exposed N/A -Texture (Mayte-wound Skin Appearance) Scarring -Moisture (Mayte-wound Skin Appearance Assessed ) -Color (Mayte-wound Skin Appearance) Erythema -Temperature (Mayte-wound Skin No Abnormality Appearance) (Pt Warm) -Tenderness on Palpation (Mayte-wound No Skin Appearance) -Ulcer Cleansing Rinsed/ Irrigated with Saline -Foul Odor after Cleansing No -Anesthetic Used 4% Lidocaine Solution #1- SUPERIOR ABD WOUND (SURGICAL INCISION DEHISCENCE) -Combined with other wound No -Current Size (cm) - Length 1 -Current Size (cm) - Width 0.7 -Current Size (cm) - Depth 1.5 -Total Square Cm 0.7 -Date of Last Picture (Recall this 07/04/17 field) -Photo Taken Yes -Epithelialization None Present -Tunneling Yes -Tunneling Position (O'clock) 5 -Tunneling Distance (cm) 3.1 -Tunneling Position #2 (O'clock) 12 -Tunneling Distance #2 (cm) 3.5 -Undermining/Tunneling No -Exudate Amt Medium (34-66%) -Exudate Type Serosanguineous -Wound Margin Distinct, Outline Attached -Granulation Amt Small (1-33%) -Granulation Quality Red -Slough/Fibrin Yes -Necrosis Amt Large (67-100%) -Necrotic Tissue Type Adherent Slough -Structure Exposed N/A -Texture (Mayte-wound Skin Appearance) Scarring -Moisture (Mayte-wound Skin Appearance Assessed ) -Color (Mayte-wound Skin Appearance) Erythema -Temperature (Mayte-wound Skin No Abnormality Appearance) (Pt Warm) -Tenderness on Palpation (Mayte-wound No Skin Appearance) -Ulcer Cleansing Rinsed/ Irrigated with Saline -Foul Odor after Cleansing No -Anesthetic Used 4% Lidocaine Solution Neurological: Cranial nerves II-XII grossly intact, Neuro grossly intact Psych/Mental Status: Normal Affect, Appropriate, Alert and oriented to time, place, person, mood and affect Debridement Note Post-Debridement Measurements/Treatment WC - Nurse 2 - General Ulcer CM Notes Start: 06/07/17 10:42 Freq: Status: Active Protocol: Activity Type Activity Date Activity User E-Sign Co-Sign Detail Recorded Client Recorded Date Recorded By Document 06/07/17 11:24 [id number] 06/07/17 11:42 JS Document 06/21/17 11:18 [id number] 06/21/17 11:32 JS 06/07/17 06/21/17 11:24 11:18 Wound Center Nurse 2 #2- INFERIOR ABD WOUND (SURGICAL INCISION DEHISCENCE) -Time 11:24 11:18 -Correct Patient Yes Yes -Correct Side, Site, Position Yes Yes -Correct Procedure Yes Yes -Procedure Performed Yes Yes -Type of Procedure Debridement Debridement -Clinical Debridement Subcutaneous Subcutaneous -Post Debridement Size (cm) - Length 2.4 1.9 -Post Debridement Size (cm) - Width 5.1 4.1 -Post Debridement Size (cm) - Depth 1.4 1.8 -Total Square Cm 12.24 7.79 -Wound/Ulcer Outcome Not Healed Not Healed -Ulcer Cleansing Rinsed/ Rinsed/ Irrigated with Irrigated with Saline Saline -Foul Odor after Cleansing No No -Bioengineered Tissue No No -Cetacaine [place] No No -Topical Lidocaine (%) 4 4 -Lidocaine (ml) 5 5 -Bleeding Controlled with NA NA -Treatment Response Procedure Procedure Tolerated Well Tolerated Well #1- SUPERIOR ABD WOUND (SURGICAL INCISION DEHISCENCE) -Time 11:24 11:19 -Correct Patient Yes Yes -Correct Side, Site, Position Yes Yes -Correct Procedure Yes Yes -Procedure Performed Yes Yes -Type of Procedure Debridement Debridement -Clinical Debridement Subcutaneous Subcutaneous -Post Debridement Size (cm) - Length 0.9 0.7 -Post Debridement Size (cm) - Width 1.3 1.0 -Post Debridement Size (cm) - Depth 2.3 2.0 -Total Square Cm 1.17 0.70 -Wound/Ulcer Outcome Not Healed Not Healed -Ulcer Cleansing Rinsed/ Rinsed/ Irrigated with Irrigated with Saline Saline -Foul Odor after Cleansing No No -Bioengineered Tissue No No -Cetacaine [place] No No -Topical Lidocaine (%) 4 4 -Lidocaine (ml) 5 5 -Bleeding Controlled with NA NA -Treatment Response Procedure Procedure Tolerated Well Tolerated Well Pain Scale: 0-10 Numeric Is Patient Pain Free? Yes Yes Laterality: Not Applicable - Dehiscent surgical abdominal wound Type of Debridement: Excisional debridement Anesthesia Used: 4% Lidocaine Solution Depth: Down to and including healthy tissue, in the subcutaneous layer Percentage of wound debrided: 100 Instrument Used: 5mm curette, Forceps, - - Scissors Severity: Fat Layer Exposed Amount of bleeding with debridement: Mild Bleeding Controlled with: Compression and gauze Patient tolerated procedure well Assessment/Plan Active Problems Bladder cancer metastasized to intrapelvic lymph nodes (Acute) History of total cystectomy (Acute) Wound infection after surgery (Acute) Surgical wound dehiscence (Acute) S/P ileal conduit (Acute) Assessment: This is a 61-year-old female with a recent diagnosis of carcinoma of the bladder. She is several months postoperative, and now has significant dehiscence of the inferior portion of her wound, associated with infection. There is a significant amount of undermining, and sheridan necrotic, nonviable tissue within the 2 adjacent wounds. The 2 wounds communicate in the subcutaneous planes. Patient's recent cultures have been reviewed, and are positive for Acinetobacter baumannii coag negative staph. Review of the sensitivities reveals rather global resistance to many available antibiotics. Therefore, we requested a consultation with the infectious disease service. The patient was seen and evaluated by Dr. Edward, infectious disease specialist, last week, who has added no further recommendations to the patient' s management. He has stopped her previously prescribed antibiotics, and is prescribed no new medications or therapies. Laboratory studies have been obtained, with results as follows: serum prealbumin 13.0, sodium 137, potassium 4.3, chloride 108, BUN 39, creatinine 1.7, calcium 8.4, glucose 138, SGOT 20, SGPT 8, alkaline phosphatase 81, total protein 7.4, serum albumin 2.7, white blood count 5.2, hemoglobin 10.7, hematocrit 31.4, platelets 256,000. These findings do suggest a mild anemia, and mild nutritional depletion. The patient' s hemoglobin A1c was 5.4. Her blood sugars appear to be running within desirable levels on a daily basis. Plan: Patient has been advised to take a well balanced and nutritious diet. She is currently supplementing with a nutritional supplement. Her hemoglobin A1c would suggest relatively good control of the patient's diabetes mellitus. Optimization of her diabetes has been recommended. Packing of both open wounds using gauze will continue. Wound packing with gauze will be performed once or twice daily. It is anticipated that the patient will require surgical unroofing and debridement of her extensive dehiscent wounds, and it will be necessary to determine whether the underlying fascial layers are intact. It is my intention to discuss matters with the patient's providers at [facility]. It is anticipated that the resources at that facility are more appropriate to the patient's needs if surgical intervention is required. At this time, we will continue conservative treatment as a form of maintenance . Certainly, there are issues with respect to the patient's prognosis, given the persistence of malignant lymphadenopathy within the patient's abdomen and pelvis. Discussion with the patient's oncologist may be of some benefit, to determine the patient's prognosis, and to prioritize the patient's management options. Patient will return in 1 week for reassessment. At this juncture, her multidisciplinary team of physicians at [facility] anticipates the initiation of immunotherapy in the near future. The patient is not a smoker. Influenza vaccine was not administered today. Patient stands 5 feet 9 inches tall. She weighs 153 pounds. Her BMI is 22.6, which is normal.
== END 2017-07-06 23:59 ==
LOC: WC 13:00
PROVIDERS: Visit Provider Surgery
DX: T81.30XA Disruption of wound, unspecified, initial encounter (principal); Y83.8 Other surgical procedures as the cause of abnormal reaction of the patient, or of later complication, without mention of misadventure at the time of the procedure; T81.4XXA Infection following a procedure, initial encounter; C67.9 Malignant neoplasm of bladder, unspecified; C77.5 Secondary and unspecified malignant neoplasm of intrapelvic lymph nodes; Z98.890 Other specified postprocedural states; I10 Essential (primary) hypertension; R01.1 Cardiac murmur, unspecified; D64.9 Anemia, unspecified; Z79.899 Other long term (current) drug therapy; E11.9 Type 2 diabetes mellitus without complications; Z79.4 Long term (current) use of insulin
CPT/HCPCS: 11042

== ENCOUNTER 2017-07-25 16:58 | Outpatient (RCR) | payer SELFPAY ==
[2017-07-04 12:58] VITALS: BP 131/75
[2017-07-07 00:58] VITALS: PULSE 86; RESP 16; TEMP 35.9
[2017-07-25 13:48] VITALS: BP 145/90; PULSE 88; RESP 20; TEMP 36.4; BMI 22.6
--- NOTE | 2017-07-25 15:07 | PCM.WC.HP ---
(1) Surgical wound dehiscence Status: Acute Qualifiers: Encounter type: subsequent encounter Code(s): T81.31XA - Disruption of external operation (surgical) wound, not elsewhere classified, initial encounter (2) Wound infection after surgery Status: Acute Qualifiers: Encounter type: subsequent encounter Code(s): T81.4XXA - Infection following a procedure, initial encounter (3) Obesity Status: Chronic Code(s): E66.9 - Obesity, unspecified (4) Anemia Status: Chronic Code(s): D64.9 - Anemia, unspecified (5) Hypertension Status: Chronic Qualifiers: Code(s): I10 - Essential (primary) hypertension (6) Renal insufficiency Status: Chronic Code(s): N28.9 - Disorder of kidney and ureter, unspecified (7) Heart murmur Status: Chronic Code(s): R01.1 - Cardiac murmur, unspecified (8) History of total cystectomy Status: Acute Code(s): Z98.890 - Other specified postprocedural states (9) S/P ileal conduit Status: Acute Code(s): Z93.6 - Other artificial openings of urinary tract status (10) 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 Between September and December 2016 patient underwent 6 cycles of neoadjuvant chemotherapy. On February 17, 2017, she underwent radical cystectomy with vaginal sparing, ileal conduit urinary diversion, bilateral extended pelvic lymph node resection, bilateral ureterolysis, and open liver biopsy. She suffered from a series of postoperative complications, which included postoperative ascites which was surgically drained on 2 occasions, once in February and once in April. Surgical wound infection and dehiscence occurred. The patient presented here for evaluation and management regarding her surgical wound dehiscence. Management currently consists of packing of the two adjacent open wounds with Nu Gauze on a daily basis, each of which demonstrate significant undermining. Two adjacent wounds contain a large amount of frankly necrotic and nonviable tissue, and coalesce in the subcutaneous space. The patient's urological surgeon at [facility] in [place], [place], was Dr. Sidney Gonzalez. The patient admits that her appetite recently has been only fair. The amount of frankly necrotic tissue within the depths of the wounds has diminished in recent weeks with the implementation of serial debridements, gauze [id number] wound packings, etc. The patient underwent a CT scan of the abdomen at [facility] in [place], [place], on June 10, 2017, results of which reveal a small to moderate left pleural effusion, increased mild to moderate periaortic and left common iliac adenopathy, suspicious for malignant adenopathy, cutaneous defects in the lower abdominal wall with subcutaneous focal emphysema and suspicion for abscess and cutaneous fistula. Patient is currently under the care of oncologist, Dr. Keo Vargas. Immunotherapy is anticipated to start within the next week, though the patient is waiting to hear if she is a candidate. Immunotherapy would be administered at [facility]. Past Medical History Past Medical History: Chronic Problems Obesity (Chronic) Anemia (Chronic) Hypertension (Chronic) Renal insufficiency (Chronic) Heart murmur (Chronic) Surgical History: - - Patient is undergone hysterectomy in 2005. Tonsillectomy and adenoidectomy were performed in childhood. Patient has recently undergone the procedures previously outlined. She is a Ab0. Allergies/Adverse Reactions: Allergies quetiapine Adverse Reaction (Verified 05/24/17 13:15) Other Home Medications: Ambulatory Orders Medication Instructions Recorded Amlodipine [Norvasc] 5 mg PO DAILY 05/24/17 Cephalexin [Keflex] 500 mg PO TID 05/24/17 Ferrous Sulfate [Iron] 325 mg PO TID 05/24/17 Insulin Aspart [Novolog Flexpen See Protocol SC TIDCM 05/24/17 ([facility])] Insulin Glargine,Hum.rec.anlog 25 unit SQ QHS 05/24/17 [Basaglar Kwikpen U-100] Insulin Glargine,Hum.rec.anlog 15 unit SQ QHS 05/24/17 [Lantus] Levofloxacin [Levaquin] 750 mg PO 05/24/17 Magnesium Oxide [Mag-Ox 400] 400 mg PO BID 05/24/17 Metoprolol Succinate 50 mg PO DAILY 05/24/17 Omeprazole 40 mg PO DAILY 05/24/17 Prochlorperazine Maleate 10 mg PO 05/24/17 Sodium Bicarbonate 650 mg PO BID 05/24/17 Venlafaxine HCl [Effexor] 37.5 mg PO 05/24/17 - Family History Maternal - - Patient's father is . He at the age of 68 with a history of myocardial infarction and asbestosis. Patient's mother is 85 years of age and generally healthy. Smoking Status: Never smoker Tobacco Use: Non-smoker Review of Systems Constitutional: Denies: Chills, Fever, Weight Change Eyes: Denies: Pain, Vision Change HEENT: Denies: Difficulty Hearing, Difficulty Swallowing, Sinus Congestion Cardiovascular: Denies: Chest Pain, Palpitations Respiratory: Denies: Cough, Shortness of Breath Gastrointestinal: Denies: Diarrhea, Nausea, Vomiting Genitourinary: Denies: Dysuria, Hematuria Endocrine: Denies: Heat/ Cold Intolerance, Polydipsia, Polyuria Hematologic/ Lymphatic: Denies: Easy Bruising, Easy Bleeding - Physical Exam Vital Signs Temp Pulse Resp BP 97.5 F L 88 20 H 145/90 H 07/25/17 13:48 07/25/17 13:48 07/25/17 13:48 07/25/17 13:48 General: Alert, Oriented x3, Cooperative, No apparent distress, Well developed, Well nourished, - - Patient appears weak and somewhat deconditioned. HEENT: Atraumatic, PERRLA, EOMI, Normocephalic Oral: Moist Mucosa Neck: No JVD Lungs: Normal air movement Abdomen: Soft, Non-Distended, - - The patient's coma is pink and healthy in appearance, and appears to be functional. Her wound dehiscence is slightly improved, with an increasing amount of pink granulation tissue within the depths. However, there remains a large amount of frankly nonviable and necrotic tissue within the wound. The 2 adjacent wounds communicate within the subcutaneous space. There is significant undermining. Dimensions are documented elsewhere. There is malodor. Swab cultures have been obtained for aerobic and anaerobic bacteria. Extremities: No clubbing, No cyanosis, No edema, No Calf Tenderness Wound Measurements and Assessment WC - Nurse 1 - General Ulcer Measurement Start: 07/25/17 13:48 Freq: Status: Active Protocol: Activity Type Activity Date Activity User E-Sign Co-Sign Detail Recorded Client Recorded Date Recorded By Document 07/25/17 13:48 STACIE [id number] 07/25/17 14:04 STACIE 07/25/17 13:48 Wound Center Nurse 1 [Ulcer Assessment] #2- INFERIOR ABD WOUND (SURGICAL INCISION DEHISCENCE) -Combined with other wound No -Current Size (cm) - Length 1 -Current Size (cm) - Width 2.7 -Current Size (cm) - Depth 2.5 -Total Square Cm 2.7 -Photo Taken Yes -Epithelialization None Present -Tunneling No -Undermining/Tunneling No -Circular Undermining Yes -Exudate Amt Large (67-100%) -Exudate Type Serosanguineous -Wound Margin Flat & Intact -Granulation Amt Small (1-33%) -Granulation Quality Red -Slough/Fibrin Yes -Necrosis Amt Large (67-100%) -Necrotic Tissue Type Adherent Slough -Structure Exposed N/A -Texture (Mayte-wound Skin Appearance) Assessed Excoriation Fluctuance Rash -Moisture (Mayte-wound Skin Appearance Assessed ) Dry/Scaly -Color (Mayte-wound Skin Appearance) Assessed -Temperature (Mayte-wound Skin No Abnormality Appearance) (Pt Warm) -Tenderness on Palpation (Mayte-wound No Skin Appearance) -Ulcer Cleansing Wound Cleanser -Foul Odor after Cleansing Yes -Anesthetic Used 4% Lidocaine Solution #1- SUPERIOR ABD WOUND (SURGICAL INCISION DEHISCENCE) -Combined with other wound No -Current Size (cm) - Length 1 -Current Size (cm) - Width 0.8 -Current Size (cm) - Depth 1.8 -Total Square Cm 0.8 -Photo Taken Yes -Epithelialization None Present -Tunneling No -Undermining/Tunneling No -Circular Undermining No -Exudate Amt Large (67-100%) -Exudate Type Serosanguineous -Wound Margin Flat & Intact -Granulation Amt Small (1-33%) -Granulation Quality Red -Slough/Fibrin Yes -Necrosis Amt Large (67-100%) -Necrotic Tissue Type Adherent Slough -Structure Exposed N/A -Texture (Mayte-wound Skin Appearance) Assessed Excoriation -Moisture (Mayte-wound Skin Appearance Assessed ) Dry/Scaly -Color (Mayte-wound Skin Appearance) Assessed -Temperature (Mayte-wound Skin No Abnormality Appearance) (Pt Warm) -Tenderness on Palpation (Mayte-wound No Skin Appearance) -Ulcer Cleansing Wound Cleanser -Foul Odor after Cleansing Yes -Anesthetic Used 4% Lidocaine Solution [Edema Assessment] -Lower Limb Edema Present NA Neurological: Cranial nerves II-XII grossly intact, Neuro grossly intact Psych/Mental Status: Normal Affect, Appropriate, Alert and oriented to time, place, person, mood and affect Debridement Note Laterality: Not Applicable - Dehiscent abdominal surgical wound Type of Debridement: Excisional debridement Anesthesia Used: 4% Lidocaine Solution Depth: Down to and including healthy tissue, in the subcutaneous layer Percentage of wound debrided: 80 Instrument Used: Forceps, - - Scissors Severity: Fat Layer Exposed Amount of bleeding with debridement: Mild Bleeding Controlled with: Compression and gauze Patient tolerated procedure well Assessment/Plan Assessment: This is a 61-year-old female with a recent diagnosis of carcinoma of the bladder. She is postoperative, and has significant dehiscence of the inferior portion of her wound. There is a significant amount of undermining, and sheridan necrotic, nonviable tissue within the 2 adjacent wounds. The 2 wounds communicate in the subcutaneous planes. Wound cultures were previously positive, and the patient has been treated. However, due to the presence of additional drainage and odor, the wound has been recultured today. We will await results. Laboratory studies have been obtained, with results as follows: serum prealbumin 13.0, sodium 137, potassium 4.3, chloride 108, BUN 39, creatinine 1.7, calcium 8.4, glucose 138, SGOT 20, SGPT 8, alkaline phosphatase 81, total protein 7.4, serum albumin 2.7, white blood count 5.2, hemoglobin 10.7, hematocrit 31.4, platelets 256,000. These findings do suggest a mild anemia, and mild nutritional depletion. The patient's hemoglobin A1c was 5.4. Her blood sugars appear to be running within desirable levels on a daily basis. Plan: Patient has been advised to take a well balanced and nutritious diet. She is currently supplementing with a nutritional supplement. Her hemoglobin A1c would suggest relatively good control of the patient's diabetes mellitus. Optimization of her diabetes has been recommended. Packing of both open wounds using gauze will continue. Wound packing with [id number] gauze will be performed once or twice daily. It is anticipated that the patient will require surgical unroofing and debridement of her extensive dehiscent wounds, and it will be necessary to determine whether the underlying fascial layers are intact. It is my intention to discuss matters with the patient's providers at [facility]. It is anticipated that the resources at that facility are more appropriate to the patient's needs if surgical intervention is required. Her multiple comorbid conditions, immunocompromised state, the presence of persisting malignancy, and the impending initiation of immunotherapy, or factors that would suggest patient is best treated at [facility] should aggressive measures be warranted. Furthermore, it may be found that the fascial layer is compromised, which render her intervention more complex. The presence of a nearby stoma also complicates the issue of wound healing and management. We will continue conservative treatment as a form of maintenance. Certainly, there are issues with respect to the patient's prognosis, given the persistence of malignant lymphadenopathy within the patient's abdomen and pelvis. Discussion with the patient's oncologist may be of some benefit, to determine the patient's prognosis, and to prioritize the patient's management options. Patient will return in 1 week for reassessment. At this juncture, her multidisciplinary team of physicians at [facility] anticipates the initiation of immunotherapy in the near future. I intend to speak with her oncologist, Dr. Keo Vargas in the near future regarding continuity of care at [facility]. His contact phone number is [phone]. It is hoped that collaboration will be in the patient's best interest. We will await the results of wound cultures, obtained today. The patient is not a smoker. Influenza vaccine was not administered today. Patient stands 5 feet 9 inches tall. She weighs 153 pounds. Her BMI is 22.6, which is normal.
--- NOTE | 2017-07-25 15:19 | HP.PCM_ITS ---
(1) Surgical wound dehiscence Status: Acute Qualifiers: Encounter type: subsequent encounter Code(s): T81.31XA - Disruption of external operation (surgical) wound, not elsewhere classified, initial encounter (2) Wound infection after surgery Status: Acute Qualifiers: Encounter type: subsequent encounter Code(s): T81.4XXA - Infection following a procedure, initial encounter (3) Obesity Status: Chronic Code(s): E66.9 - Obesity, unspecified (4) Anemia Status: Chronic Code(s): D64.9 - Anemia, unspecified (5) Hypertension Status: Chronic Qualifiers: Code(s): I10 - Essential (primary) hypertension (6) Renal insufficiency Status: Chronic Code(s): N28.9 - Disorder of kidney and ureter, unspecified (7) Heart murmur Status: Chronic Code(s): R01.1 - Cardiac murmur, unspecified (8) History of total cystectomy Status: Acute Code(s): Z98.890 - Other specified postprocedural states (9) S/P ileal conduit Status: Acute Code(s): Z93.6 - Other artificial openings of urinary tract status (10) 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 Between September and December 2016 patient underwent 6 cycles of neoadjuvant chemotherapy. On February 17, 2017, she underwent radical cystectomy with vaginal sparing, ileal conduit urinary diversion, bilateral extended pelvic lymph node resection, bilateral ureterolysis, and open liver biopsy. She suffered from a series of postoperative complications, which included postoperative ascites which was surgically drained on 2 occasions, once in February and once in April. Surgical wound infection and dehiscence occurred. The patient presented here for evaluation and management regarding her surgical wound dehiscence. Management currently consists of packing of the two adjacent open wounds with Nu Gauze on a daily basis, each of which demonstrate significant undermining. Two adjacent wounds contain a large amount of frankly necrotic and nonviable tissue, and coalesce in the subcutaneous space. The patient's urological surgeon at [facility] in [place], [place], was Dr. Sidney Gonzalez. The patient admits that her appetite recently has been only fair. The amount of frankly necrotic tissue within the depths of the wounds has diminished in recent weeks with the implementation of serial debridements, gauze [id number] wound packings, etc. The patient underwent a CT scan of the abdomen at [facility] in [place], [place], on June 10, 2017, results of which reveal a small to moderate left pleural effusion, increased mild to moderate periaortic and left common iliac adenopathy, suspicious for malignant adenopathy, cutaneous defects in the lower abdominal wall with subcutaneous focal emphysema and suspicion for abscess and cutaneous fistula. Patient is currently under the care of oncologist, Dr. Keo Vargas. Immunotherapy is anticipated to start within the next week, though the patient is waiting to hear if she is a candidate. Immunotherapy would be administered at [facility]. Past Medical History Past Medical History: Chronic Problems Obesity (Chronic) Anemia (Chronic) Hypertension (Chronic) Renal insufficiency (Chronic) Heart murmur (Chronic) Surgical History: - - Patient is undergone hysterectomy in 2005. Tonsillectomy and adenoidectomy were performed in childhood. Patient has recently undergone the procedures previously outlined. She is a Ab0. Allergies/Adverse Reactions: Allergies quetiapine Adverse Reaction (Verified 05/24/17 13:15) Other Home Medications: Ambulatory Orders Medication Instructions Recorded Amlodipine [Norvasc] 5 mg PO DAILY 05/24/17 Cephalexin [Keflex] 500 mg PO TID 05/24/17 Ferrous Sulfate [Iron] 325 mg PO TID 05/24/17 Insulin Aspart [Novolog Flexpen See Protocol SC TIDCM 05/24/17 ([facility])] Insulin Glargine,Hum.rec.anlog 25 unit SQ QHS 05/24/17 [Basaglar Kwikpen U-100] Insulin Glargine,Hum.rec.anlog 15 unit SQ QHS 05/24/17 [Lantus] Levofloxacin [Levaquin] 750 mg PO 05/24/17 Magnesium Oxide [Mag-Ox 400] 400 mg PO BID 05/24/17 Metoprolol Succinate 50 mg PO DAILY 05/24/17 Omeprazole 40 mg PO DAILY 05/24/17 Prochlorperazine Maleate 10 mg PO 05/24/17 Sodium Bicarbonate 650 mg PO BID 05/24/17 Venlafaxine HCl [Effexor] 37.5 mg PO 05/24/17 - Family History Maternal - - Patient's father is . He at the age of 68 with a history of myocardial infarction and asbestosis. Patient's mother is 85 years of age and generally healthy. Smoking Status: Never smoker Tobacco Use: Non-smoker Review of Systems Constitutional: Denies: Chills, Fever, Weight Change Eyes: Denies: Pain, Vision Change HEENT: Denies: Difficulty Hearing, Difficulty Swallowing, Sinus Congestion Cardiovascular: Denies: Chest Pain, Palpitations Respiratory: Denies: Cough, Shortness of Breath Gastrointestinal: Denies: Diarrhea, Nausea, Vomiting Genitourinary: Denies: Dysuria, Hematuria Endocrine: Denies: Heat/ Cold Intolerance, Polydipsia, Polyuria Hematologic/ Lymphatic: Denies: Easy Bruising, Easy Bleeding - Physical Exam Vital Signs Temp Pulse Resp BP 97.5 F L 88 20 H 145/90 H 07/25/17 13:48 07/25/17 13:48 07/25/17 13:48 07/25/17 13:48 General: Alert, Oriented x3, Cooperative, No apparent distress, Well developed, Well nourished, - - Patient appears weak and somewhat deconditioned. HEENT: Atraumatic, PERRLA, EOMI, Normocephalic Oral: Moist Mucosa Neck: No JVD Lungs: Normal air movement Abdomen: Soft, Non-Distended, - - The patient's coma is pink and healthy in appearance, and appears to be functional. Her wound dehiscence is slightly improved, with an increasing amount of pink granulation tissue within the depths. However, there remains a large amount of frankly nonviable and necrotic tissue within the wound. The 2 adjacent wounds communicate within the subcutaneous space. There is significant undermining. Dimensions are documented elsewhere. There is malodor. Swab cultures have been obtained for aerobic and anaerobic bacteria. Extremities: No clubbing, No cyanosis, No edema, No Calf Tenderness Wound Measurements and Assessment WC - Nurse 1 - General Ulcer Measurement Start: 07/25/17 13:48 Freq: Status: Active Protocol: Activity Type Activity Date Activity User E-Sign Co-Sign Detail Recorded Client Recorded Date Recorded By Document 07/25/17 13:48 STACIE [id number] 07/25/17 14:04 STACIE 07/25/17 13:48 Wound Center Nurse 1 [Ulcer Assessment] #2- INFERIOR ABD WOUND (SURGICAL INCISION DEHISCENCE) -Combined with other wound No -Current Size (cm) - Length 1 -Current Size (cm) - Width 2.7 -Current Size (cm) - Depth 2.5 -Total Square Cm 2.7 -Photo Taken Yes -Epithelialization None Present -Tunneling No -Undermining/Tunneling No -Circular Undermining Yes -Exudate Amt Large (67-100%) -Exudate Type Serosanguineous -Wound Margin Flat & Intact -Granulation Amt Small (1-33%) -Granulation Quality Red -Slough/Fibrin Yes -Necrosis Amt Large (67-100%) -Necrotic Tissue Type Adherent Slough -Structure Exposed N/A -Texture (Mayte-wound Skin Appearance) Assessed Excoriation Fluctuance Rash -Moisture (Mayte-wound Skin Appearance Assessed ) Dry/Scaly -Color (Mayte-wound Skin Appearance) Assessed -Temperature (Mayte-wound Skin No Abnormality Appearance) (Pt Warm) -Tenderness on Palpation (Mayte-wound No Skin Appearance) -Ulcer Cleansing Wound Cleanser -Foul Odor after Cleansing Yes -Anesthetic Used 4% Lidocaine Solution #1- SUPERIOR ABD WOUND (SURGICAL INCISION DEHISCENCE) -Combined with other wound No -Current Size (cm) - Length 1 -Current Size (cm) - Width 0.8 -Current Size (cm) - Depth 1.8 -Total Square Cm 0.8 -Photo Taken Yes -Epithelialization None Present -Tunneling No -Undermining/Tunneling No -Circular Undermining No -Exudate Amt Large (67-100%) -Exudate Type Serosanguineous -Wound Margin Flat & Intact -Granulation Amt Small (1-33%) -Granulation Quality Red -Slough/Fibrin Yes -Necrosis Amt Large (67-100%) -Necrotic Tissue Type Adherent Slough -Structure Exposed N/A -Texture (Mayte-wound Skin Appearance) Assessed Excoriation -Moisture (Mayte-wound Skin Appearance Assessed ) Dry/Scaly -Color (Mayte-wound Skin Appearance) Assessed -Temperature (Mayte-wound Skin No Abnormality Appearance) (Pt Warm) -Tenderness on Palpation (Mayte-wound No Skin Appearance) -Ulcer Cleansing Wound Cleanser -Foul Odor after Cleansing Yes -Anesthetic Used 4% Lidocaine Solution [Edema Assessment] -Lower Limb Edema Present NA Neurological: Cranial nerves II-XII grossly intact, Neuro grossly intact Psych/Mental Status: Normal Affect, Appropriate, Alert and oriented to time, place, person, mood and affect Debridement Note Laterality: Not Applicable - Dehiscent abdominal surgical wound Type of Debridement: Excisional debridement Anesthesia Used: 4% Lidocaine Solution Depth: Down to and including healthy tissue, in the subcutaneous layer Percentage of wound debrided: 80 Instrument Used: Forceps, - - Scissors Severity: Fat Layer Exposed Amount of bleeding with debridement: Mild Bleeding Controlled with: Compression and gauze Patient tolerated procedure well Assessment/Plan Assessment: This is a 61-year-old female with a recent diagnosis of carcinoma of the bladder. She is postoperative, and has significant dehiscence of the inferior portion of her wound. There is a significant amount of undermining, and sheridan necrotic, nonviable tissue within the 2 adjacent wounds. The 2 wounds communicate in the subcutaneous planes. Wound cultures were previously positive, and the patient has been treated. However, due to the presence of additional drainage and odor, the wound has been recultured today. We will await results. Laboratory studies have been obtained, with results as follows: serum prealbumin 13.0, sodium 137, potassium 4.3, chloride 108, BUN 39, creatinine 1.7, calcium 8.4, glucose 138, SGOT 20, SGPT 8, alkaline phosphatase 81, total protein 7.4, serum albumin 2.7, white blood count 5.2, hemoglobin 10.7 , hematocrit 31.4, platelets 256,000. These findings do suggest a mild anemia, and mild nutritional depletion. The patient's hemoglobin A1c was 5.4. Her blood sugars appear to be running within desirable levels on a daily basis. Plan: Patient has been advised to take a well balanced and nutritious diet. She is currently supplementing with a nutritional supplement. Her hemoglobin A1c would suggest relatively good control of the patient's diabetes mellitus. Optimization of her diabetes has been recommended. Packing of both open wounds using gauze will continue. Wound packing with [id number] gauze will be performed once or twice daily. It is anticipated that the patient will require surgical unroofing and debridement of her extensive dehiscent wounds, and it will be necessary to determine whether the underlying fascial layers are intact. It is my intention to discuss matters with the patient's providers at [facility]. It is anticipated that the resources at that facility are more appropriate to the patient's needs if surgical intervention is required. Her multiple comorbid conditions, immunocompromised state, the presence of persisting malignancy, and the impending initiation of immunotherapy , or factors that would suggest patient is best treated at [facility] should aggressive measures be warranted. Furthermore, it may be found that the fascial layer is compromised, which render her intervention more complex. The presence of a nearby stoma also complicates the issue of wound healing and management. We will continue conservative treatment as a form of maintenance . Certainly, there are issues with respect to the patient's prognosis, given the persistence of malignant lymphadenopathy within the patient's abdomen and pelvis. Discussion with the patient's oncologist may be of some benefit, to determine the patient's prognosis, and to prioritize the patient's management options. Patient will return in 1 week for reassessment. At this juncture, her multidisciplinary team of physicians at [facility] anticipates the initiation of immunotherapy in the near future. I intend to speak with her oncologist, Dr. Keo Vargas in the near future regarding continuity of care at [facility]. His contact phone number is . It is hoped that collaboration will be in the patient's best interest. We will await the results of wound cultures, obtained today. The patient is not a smoker. Influenza vaccine was not administered today. Patient stands 5 feet 9 inches tall. She weighs 153 pounds. Her BMI is 22.6, which is normal.
== END 2017-08-03 23:59 ==
LOC: WC 16:58
PROVIDERS: Visit Provider Surgery
DX: T81.30XA Disruption of wound, unspecified, initial encounter (principal); Y83.8 Other surgical procedures as the cause of abnormal reaction of the patient, or of later complication, without mention of misadventure at the time of the procedure; I10 Essential (primary) hypertension; T81.4XXA Infection following a procedure, initial encounter; R01.1 Cardiac murmur, unspecified; Z93.6 Other artificial openings of urinary tract status; C67.9 Malignant neoplasm of bladder, unspecified; C77.5 Secondary and unspecified malignant neoplasm of intrapelvic lymph nodes; Z92.21 Personal history of antineoplastic chemotherapy; Z79.899 Other long term (current) drug therapy; Z79.4 Long term (current) use of insulin
CPT/HCPCS: 11042; 87070; 87075; 87077; 87186; 87205